=== PATIENT | male | born 1955 | race Caucasian/White ===

== ENCOUNTER 2023-02-01 17:37 | Inpatient (IN) | payer MEDICARE, MEDICAID, SELFPAY ==
--- NOTE | ~2023-02-01 | XR_ITS ---
EXAMINATION: XR ABDOMEN KUB CLINICAL INDICATION: Constipation, rule out obstruction COMPARISON: None available. TECHNIQUE: AP view of the abdomen. FINDINGS: There is no evidence of bowel obstruction. Moderate amount of retained feces seen through the colon consistent with constipation. There is no evidence of free air under the diaphragm. Structures are unremarkable XR/XR KUB IMPRESSION: Constipation
[2023-02-01 18:00] VITALS: BP 133/69; PULSE 70; RESP 18; TEMP 36.3; O2SAT 96
--- NOTE | 2023-02-01 18:32 | PC.ADMIT ---
Patient arrived via stretcher from [facility]. Pt is 67 y.o. male, presented to the [place] ED with increased anxiety and paranoia delusions, symptoms of delusions, hypersexuality, and paranoia. Also thoughts of hurting others who are evil . Pt with Hx of Schizophrenia and on Clozapine. Blood work done here. Awaiting results. During initial assessment at this unit pt alert, oriented x 3. Calm, slurred speech, mood/affect appropriate. Denies SI/HI/AH/VH VS. VS:133/69-70-18, T 97.3, O2sat 96% on RA. Wt 177.4 lb. Skin assessment completed. Left arm edema sec. to post mastectomy. Patient signed consents. Patient was hungry, and is consuming supper at this time. Jim Pat aware of pt's arrrival.
[2023-02-01 18:56] VITALS: BMI 25.5
[2023-02-01 20:30] VITALS: BP 144/88; PULSE 84; RESP 18; TEMP 36.2; O2SAT 96
[2023-02-01] MEDS: cloZAPine 100 MG TABLET PO (21:55)
[2023-02-01] MEDS: traZODone HCL 50 MG TABLET PO ×2 (21:55→23:15)
[2023-02-01] MEDS: Acetaminophen 325 MG TABLET 650 MG PO (21:56)
[2023-02-01 22:30] LABS: Neut%MD 67.1 %; Neutrophils Absolute Auto 4.1 x10*3/uL (2.0-8.3); WBCANC 6.1 X10*3/uL
[2023-02-02] MEDS: hydrOXYzine HCL 25 MG TABLET PO (03:36)
[2023-02-02 06:00] VITALS: BP 120/72; PULSE 73; RESP 16; O2SAT 95
[2023-02-02 08:37] LABS: Alanine Aminotransferase 45 U/L (0-40); Albumin Level 3.7 g/dL (3.5-5.0); Alkaline Phosphatase 95 U/L (39-117); Anion Gap 11 (12-20); Aspartate Amino Transferase 38 U/L (5-37); Bilirubin Direct 0.2 mg/dL (0.0-0.5); Bilirubin Total 0.6 mg/dL (0.0-1.0); Blood Urea Nitrogen 20 mg/dL (9-16); Calcium 9.2 mg/dL (8.4-10.2); Carbon Dioxide 30 mmol/L (22-29); Chloride 106 mmol/L (96-108); Cholesterol 120 mg/dL; Creatinine Clr Calc Pharmacy 89.9; Estimated Glomerular Filt Rate > 60; Glucose Fasting 104 mg/dL (60-99); HDL Cholesterol 53 mg/dL; LDL Cholesterol Calculated 56 mg/dl; Potassium 4.2 mmol/L (3.3-5.1); Sodium 143 mmol/L (135-145); Total Protein 6.9 g/dL (6.5-8.0); Triglycerides 59 mg/dL
[2023-02-02 08:51] LABS: Free T4 (Free Thyroxine) 0.89 ng/dL (0.71-1.85); Thyroid Stimulating Hormone 11.45 uIU/mL (0.32-4.0)
[2023-02-02 09:04] LABS: Folate 10.7 ng/mL (> or = 4.0); Vitamin B12 1699 pg/mL (200-900)
[2023-02-02 09:21] LABS: Estimated Average Glucose 123 mg/dL; Hemoglobin A1c % 5.9 %
--- NOTE | 2023-02-02 12:03 | P.CONHOSP_ITS ---
History of Present Illness Data of Consult Service Date: 02/02/23 Requesting physician: Ashkan Madden Primary Care Provider: Flaca Felton MD HPI Reason for consult: Medical H and P 67-year-old male with history of BPH, hyperlipidemia, type 2 diabetes, hypertension, hypothyroidism, and history of metastatic breast cancer s/p left mastectomy an left-sided lymph node excision treated with chemo and radiation now on anastrozole admitted to Psychiatry consult placed to hospitalist service for medical H and P. He reports he is feeling well and has no complaints. He denies any alcohol use, illicit drug use but does have a history of LSD use and is a former smoker. Review of Systems Review of Systems: General: No fevers, malaise, unintentional weight loss HEENT: No blurred vision, diplopia. No sore throat, nasal congestion, rhinorrhea, sinus pain, ear pain Cardiovascular: No chest pain, palpitations, or leg edema Respiratory: No shortness of breath, wheezing, cough GI: No abdominal pain, nausea, vomiting, diarrhea, constipation, melena, hematochezia : No dysuria, hematuria, increased urinary frequency, decreased urinary output MSK: No myalgia, back pain Neuro: No headaches, weakness, paresthesias Skin: No rashes or lesions [facility] Medical History BPH (benign prostatic hyperplasia) Chronic acquired lymphedema History of breast cancer Hyperlipidemia Hypertension Hypothyroidism Type 2 diabetes mellitus Surgical History S/P left mastectomy Social History Household Members: Caregiver Housing: Apartment Do you presently have visiting nurse or other home services: Yes Patient Tobacco Use Status: Former Tobacco user Smoked in Last 30 Days: No Use of substances other than those prescribed or required for medical reasons: Yes Currently Displaying Signs/Symptoms of Drug Intoxication Withdrawal: No Any prior treatment program specific to substance use: No Have you been hit, kicked, punched, or otherwise hurt by someone within the past year? If so, by whom?: No Do you feel safe in your current relationship?: Yes Is there a partner from a previous relationship who is making you feel unsafe now?: No Are you made to feel afraid or neglected: No Advance Directives: No Advance Directives Information Provided: No Do you have thoughts of harming others: None Do you have a plan to hurt others: No Plan Recently lost weight without trying: Yes How much weight loss: 14-23 pounds Eating poorly because of decreased appetite: No Nutrition screen score: 4 Nutrition Risks: No Nutritional Risk Poor oral hygiene: No service: No Sexual orientation: Straight/Heterosexual Meds Allergies Allergy/AdvReac Type Severity Reaction Status Date / Time Unable to Assess Allergy Verified 02/01/23 17:51 Active Medications: Current Medications Acetaminophen (Acetaminophen 325 Mg Tablet) 650 mg PO Q6H PRN PRN Reason: Headache/Pain Mild Scale (1-3) Last Admin: 02/01/23 21:56 Dose: 650 mg Al Hydroxide/Mg Hydroxide (Magnesium Hydrox/Alum Hydrox 30 Ml Oral.Susp) 30 ml PO Q6H PRN PRN Reason: Heartburn/Nausea Clozapine 200 mg/ Clozapine 50 (mg) 250 mg PO BEDTIME [facility] Hydroxyzine HCl (Hydroxyzine Hcl 25 Mg Tablet) 25 mg PO Q6H PRN PRN Reason: Anxiety Last Admin: 02/02/23 03:36 Dose: 25 mg Magnesium Hydroxide (Milk Of Magnesia 30 Ml Oral.Susp) 30 ml PO DAILY PRN PRN Reason: Constipation Trazodone HCl (Trazodone Hcl 50 Mg Tablet) 50 mg PO BEDTIME MRX1 PRN PRN Reason: Insomnia Last Admin: 02/01/23 23:15 Dose: 50 mg Home Medications Medication Instructions Recorded Confirmed Last Taken Type alfuzosin 10 mg tablet,extended 10 mg PO DAILY 02/02/23 02/02/23 Unknown History release 24 hr anastrozole 1 mg tablet 1 mg PO 02/02/23 Unknown History atorvastatin 80 mg tablet 80 mg PO 02/02/23 Unknown History benztropine 0.5 mg tablet 0.5 mg PO BEDTIME 02/02/23 02/02/23 Unknown History cyanocobalamin (vitamin B-12) 1,000 mcg PO DAILY 02/02/23 02/02/23 Unknown History 1,000 mcg tablet,extended release (Vitamin B-12 ER) docusate sodium 100 mg capsule 200 mg PO BID PRN Constipation 02/02/23 02/02/23 Unknown History famotidine 20 mg tablet 20 mg PO 02/02/23 Unknown History finasteride 5 mg tablet 5 mg PO 02/02/23 Unknown History furosemide 20 mg tablet 20 mg PO 02/02/23 Unknown History levothyroxine 100 mcg tablet 100 mcg PO 02/02/23 Unknown History metformin 500 mg tablet,extended 500 mg PO QPM 02/02/23 02/02/23 Unknown History release 24 hr metoprolol succinate 25 mg 25 mg PO DAILY blood pressure 02/02/23 02/02/23 Unknown History tablet,extended release 24 hr ropinirole 0.5 mg tablet 0.5 mg PO BID 02/02/23 02/02/23 Unknown History sennosides 8.6 mg-docusate sodium 2 tab PO BID 02/02/23 02/02/23 Unknown History 50 mg tablet (Senna Plus) Physical Exam Vital Signs and Narrative: Vital Signs: Last Vital Signs Temp 97.2 F 02/01/23 20:30 Pulse 73 02/02/23 06:00 Resp 16 02/02/23 06:00 BP 120/72 02/02/23 06:00 Pulse Ox 95 02/02/23 06:00 O2 Del Method Room Air 02/02/23 06:00 BMI result Body Mass Index 25.5 Constitutional - Awake and Alert, No apparent distress Eyes - PERRLA, EOMI Cardiovascular - S1S2, RRR, No edema Respiratory - Normal lung expansion, Normal respiratory effort, No respiratory distress, CTA bilaterally Gastrointestinal - NT / ND; +BS; No rebound or guarding Extremities - no calf tenderness bilaterally, no swelling Musculoskeletal - Normal inspection, normal ROM Skin - Warm/Dry Neurological - Alert & oriented x3, CN II-XII in tact, 5/5 strength BUE and BLE Psychological - Appropriate affect Results Labs 02/02/23 08:03 Labs: Laboratory Results - last 24 hr 02/01/23 02/02/23 02/02/23 22:18 08:03 08:03 Absolute Neuts (auto) 4.1 Anion Gap 11 L Estim Creat Clear Calc 89.9 Estimated GFR > 60 Fasting Glucose 104 H Estimat Average Glucose 123 Hemoglobin A1c % 5.9 Calcium 9.2 Total Bilirubin 0.6 Direct Bilirubin 0.2 AST 38 H ALT 45 H Alkaline Phosphatase 95 Total Protein 6.9 Albumin 3.7 Triglycerides 59 Cholesterol 120 LDL Cholesterol, Calc 56 HDL Cholesterol 53 Vitamin B12 Folate TSH 11.45 H Free T4 0.89 02/02/23 08:03 Absolute Neuts (auto) Anion Gap Estim Creat Clear Calc Estimated GFR Fasting Glucose Estimat Average Glucose Hemoglobin A1c % Calcium Total Bilirubin Direct Bilirubin AST ALT Alkaline Phosphatase Total Protein Albumin Triglycerides Cholesterol LDL Cholesterol, Calc HDL Cholesterol Vitamin B12 1699 H Folate 10.7 TSH Free T4 Assessment and Plan (1) Routine medical exam: Status: Acute Plan 67-year-old male with history of BPH, hyperlipidemia, type 2 diabetes, hypertension, hypothyroidism, and history of metastatic breast cancer s/p left mastectomy an left-sided lymph node excision treated with chemo and radiation now on anastrozole admitted to Psychiatry consult placed to hospitalist service for medical H and P. #Mood disorder/psychosis -plan per psychiatry #Type 2 diabetes -poc glucose -diabetic diet -Humalog on sliding scale p.r.n. hyperglycemia -continue metformin # hyperlipidemia -continue statin # hypertension -blood pressure reasonably controlled -continue home meds # BPH -continue home meds # hypothyroidism -continue Synthroid # chronic lymphedema s/p left-sided lymph node dissection with history of breast cancer -continue Lasix Thank you for allowing me to participate in this consult. Signing off at this time. Please do not hesitate to call for further questions. Time Spent With Patient Time: Total time managing care of this patient today ____ minutes.
--- NOTE | 2023-02-02 16:23 | HO.PSYADMNOT ---
HPI Date of Service: 02/02/23 Chief Complaint: F20.9 Sources of Information: patient interviewed, chart reviewed and crisis/core team assessment reviewed HPI Subjective Notes: [place] Warning (given and shows understanding) and Conditional Voluntary Narrative: Mr. Sales is a 67 year-old male with hx of schizoaffective disorder who self presented to [facility] ED in [place] after being discharged from respite reporting that spirits were out to get him. In the ED, pt described as yelling at times sex, sex, sex. He denied SI but reported HI towards evil forces. Utox is negative. 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 Rahel Mejia On the unit, pt presents as pleasant. He reports he came to the hospital because Satan's children are trying to kill me. Pt explains that he can see them, but not hear them. He reports he was seeing them while he was at ED. He denies suicidal ideation. He reports at times poor sleep due to nightmares. He reports homicidal ideation towards evil forces but explains this is a mental process not physically assaulting anyone. Pt reports he lives alone and reports that he takes his medications as prescribed. He reports remote suicidal attempt when he was in high school when he thought devil was trying to kill him and he didn't want to feel the pain. He denies any thoughts like this now or recently. Pt was observed praying prior to eating his food and before every bite. Past Psychiatric History: Inpatient: multiple in the past, no details provided OP: Dr. Rahel Mejia Past trials: clozaril, lithium (per pt not as effective as depakote), depakote, haldol Medical Evaluation Reviewed: Yes [facility] Medical History BPH (benign prostatic hyperplasia) Chronic acquired lymphedema History of breast cancer Hyperlipidemia Hypertension Hypothyroidism Type 2 diabetes mellitus Surgical History S/P left mastectomy Family History: unknown, pt denies Social History: Pt lives alone. Not , no children. He reports he has 3 older brothers who are close to him. Pt reports Riky is his HCP. He reports he graduated HS. Had various jobs- carpentry, cleaning Substance History: denies Trauma History: denies Diagnostics Vital Signs (24Hr): Vital Signs - 24 hr 02/01/23 18:00 02/01/23 20:30 02/02/23 06:00 Temperature 97.3 F 97.2 F Pulse Rate 70 84 73 Respiratory Rate 18 18 16 Blood Pressure 133/69 144/88 H 120/72 Pulse Oximetry 96 96 95 Oxygen Delivery Method Room Air Room Air Room Air BMI result Body Mass Index 25.5 Labs 02/02/23 08:03 Labs: Laboratory Results - last 48 hr 02/01/23 02/02/23 02/02/23 22:18 08:03 08:03 Absolute Neuts (auto) 4.1 Sodium 143 Potassium 4.2 Chloride 106 Carbon Dioxide 30 H Anion Gap 11 L BUN 20 H Creatinine 0.80 Estim Creat Clear Calc 89.9 Estimated GFR > 60 Fasting Glucose 104 H Estimat Average Glucose 123 Hemoglobin A1c % 5.9 Calcium 9.2 Total Bilirubin 0.6 Direct Bilirubin 0.2 AST 38 H ALT 45 H Alkaline Phosphatase 95 Total Protein 6.9 Albumin 3.7 Triglycerides 59 Cholesterol 120 LDL Cholesterol, Calc 56 HDL Cholesterol 53 Vitamin B12 Folate TSH 11.45 H Free T4 0.89 02/02/23 08:03 Absolute Neuts (auto) Sodium Potassium Chloride Carbon Dioxide Anion Gap BUN Creatinine Estim Creat Clear Calc Estimated GFR Fasting Glucose Estimat Average Glucose Hemoglobin A1c % Calcium Total Bilirubin Direct Bilirubin AST ALT Alkaline Phosphatase Total Protein Albumin Triglycerides Cholesterol LDL Cholesterol, Calc HDL Cholesterol Vitamin B12 1699 H Folate 10.7 TSH Free T4 Meds/Allergies Meds Home Medications Medication Instructions Recorded Confirmed Type alfuzosin 10 mg tablet,extended 10 mg PO DAILY 02/02/23 02/02/23 History release 24 hr anastrozole 1 mg tablet 1 mg PO 02/02/23 History atorvastatin 80 mg tablet 80 mg PO 02/02/23 History benztropine 0.5 mg tablet 0.5 mg PO BEDTIME 02/02/23 02/02/23 History cyanocobalamin (vitamin B-12) 1,000 mcg PO DAILY 02/02/23 02/02/23 History 1,000 mcg tablet,extended release (Vitamin B-12 ER) docusate sodium 100 mg capsule 200 mg PO BID PRN Constipation 02/02/23 02/02/23 History famotidine 20 mg tablet 20 mg PO 02/02/23 History finasteride 5 mg tablet 5 mg PO 02/02/23 History furosemide 20 mg tablet 20 mg PO 02/02/23 History levothyroxine 100 mcg tablet 100 mcg PO 02/02/23 History metformin 500 mg tablet,extended 500 mg PO QPM 02/02/23 02/02/23 History release 24 hr metoprolol succinate 25 mg 25 mg PO DAILY blood pressure 02/02/23 02/02/23 History tablet,extended release 24 hr ropinirole 0.5 mg tablet 0.5 mg PO BID 02/02/23 02/02/23 History sennosides 8.6 mg-docusate sodium 2 tab PO BID 02/02/23 02/02/23 History 50 mg tablet (Senna Plus) Allergies Allergies Allergy/AdvReac Type Severity Reaction Status Date / Time Unable to Assess Allergy Verified 02/01/23 17:51 Mental Status Exam Mental Status Exam Narrative: Appearance: wearing casual clothing, slightly disheveled, in NAD Behavior: cooperative Psychomotor: resting bilat tremors Speech: mostly clear, regular rate/rhythm, spontaneous TP: mostly linear, no overt derailment TC: dealing with Satan's children not feeling afraid Mood: good Affect: constricted, but does brighten up at times. SI: denies HI: towards evil forces but denies any plan or intent to harm any person VH/AH: seeing devil's children Delusions: persecutory delusions of satans children trying to kill him Insight/judgment: fair x 2 Memory/cog: alert, oriented x 3 Assessment & Plan Assessment & Plan (1) Schizoaffective disorder, bipolar type: Status: Acute Code(s): F25.0 - Schizoaffective disorder, bipolar type Plan Mr. Bassett is a 67 year-old male with hx of Schizoaffective disorder who self presented to [facility] ED reporting spirits were out to get me. He denied SI. No plan or intent to harm any person but mentally fighting Satan. Pt is on clozaril. He reports taking medication as prescribed but unclear if this is the case. He did receive clozaril 150mg po qhs while in the ED ubt his pharmacy reports he should be on 250mg po qhs. Pt agrees to split the dose. Per nursing, pt was yelling at night and during the day sex, sex, sex. We discussed risks, benefits and alternative treatment options. PLAN 1. Admit to S1. CV, 15 minutes checks for safety 2. Restart clozaril 50mg po daily and 200mg po qhs. continue depakote, but note elevation in LFTs. Monitor ammonia levels. 3. Obtain collateral information 4. Aftercare planning. Patient educated on: diagnosis and medication risk/benefits Reason for continued inpatient stay Substantial Risk for: inability to function Statement Statement: I have reviewed the history and physical and performed a pertinent examination on my patient. No changes have occurred unless specified. If the History and Physical was not performed prior to admission, the Hospitalist's service will be consulted for completing the admission physical. Time Spent With Patient Time: Total time managing care of this patient today ____ minutes.
[2023-02-02 16:36] LABS: Glucose, Whole Blood 127 mg/dL (60-115)
[2023-02-02] MEDS: Levothyroxine Sodium 100 MCG TABLET PO (17:18)
[2023-02-02] MEDS: Metoprolol Succinate ER 25 MG TAB.ER.24H PO (17:18)
[2023-02-02] MEDS: Furosemide 20 MG TABLET PO (17:27)
[2023-02-02 18:00] VITALS: BP 130/82; PULSE 72; RESP 18; TEMP 35.8; O2SAT 96
[2023-02-02 20:01] LABS: Glucose, Whole Blood 139 mg/dL (60-115)
[2023-02-02] MEDS: cloZAPine 100 MG TABLET 200 MG PO (21:29)
[2023-02-02] MEDS: metFORMIN HCl ER 500 MG TAB.ER.24H PO (21:29)
[2023-02-02] MEDS: Sennosides/Docusate Sodium TABLET 2 TAB PO (21:30)
[2023-02-02] MEDS: traZODone HCL 100 MG TABLET PO (23:11)
[2023-02-03] MEDS: Levothyroxine Sodium 100 MCG TABLET PO (06:34)
[2023-02-03 07:33] LABS: Glucose, Whole Blood 108 mg/dL (60-115)
[2023-02-03 08:00] VITALS: BP 119/73; PULSE 80; RESP 18; TEMP 36.2; O2SAT 98
[2023-02-03] MEDS: cloZAPine 25 MG TABLET 50 MG PO (08:08)
[2023-02-03] MEDS: Tamsulosin HCL 0.4 MG CAPSULE PO (08:09)
[2023-02-03] MEDS: Cyanocobalamin (Vitamin B-12) 1,000 MCG TABLET 1000 MCG PO (08:09)
[2023-02-03] MEDS: Furosemide 20 MG TABLET PO (08:09)
[2023-02-03] MEDS: Finasteride 5 MG TABLET PO (08:09)
[2023-02-03] MEDS: Metoprolol Succinate ER 25 MG TAB.ER.24H PO (08:09)
[2023-02-03] MEDS: Sennosides/Docusate Sodium TABLET 2 TAB PO ×2 (08:09→20:29)
[2023-02-03] MEDS: LORazepam 1 MG TABLET PO (10:27)
[2023-02-03] MEDS: OLANZapine 10 MG TABLET PO (10:27)
[2023-02-03 12:02] LABS: Glucose, Whole Blood 93 mg/dL (60-115)
[2023-02-03] MEDS: Divalproex Sodium 500 MG TABLET.DR PO ×2 (14:01→20:29)
[2023-02-03 19:45] VITALS: BP 122/66; PULSE 78; RESP 18; TEMP 36.6; O2SAT 97
--- NOTE | 2023-02-03 19:47 | HO.PSYCHPN ---
Subjective Subjective Date of Service: 02/03/23 Reason For Visit: F20.9 Subjective Notes: Conditional Voluntary Interim History: Pt posturing towards peer and RN. He told this automotive service writer he thought they were Satan's children. Pt reflects that maybe it was devil making him think that they were evil when they were not. Pt reports he sent spell to RN which he states now regrets as he realizes she may not be Satan's child. He then asks this automotive service writer if he should be making peace signs to others, pt encourage not to be in other people's spaces. Left VM to outpatient psychiatrist, awaiting call back. Review of Systems Review of Systems Pt denies pain, including chest pain. No changes in vision. Noted resting bilat tremor He denies constipation, reports last BM yesterday. He denies abdominal pain. He denies headaches. Mental Status Exam Mental Status Exam Narrative: Appearance: wearing casual clothing, slightly disheveled, in NAD Behavior: cooperative Psychomotor: resting bilat tremors Speech: mostly clear, regular rate/rhythm, spontaneous TP: mostly linear, no overt derailment TC: dealing with Satan's children not feeling afraid Mood: good Affect: constricted, but does brighten up at times. SI: denies HI: towards evil forces but denies any plan or intent to harm any person VH/AH: seeing devil's children Delusions: persecutory delusions of satans children trying to kill him Insight/judgment: fair x 2 Memory/cog: alert, oriented x 3 Diagnostics Vital Signs (24Hr): Vital Signs - 24 hr 02/03/23 08:00 Temperature 97.2 F Pulse Rate 80 Respiratory Rate 18 Blood Pressure 119/73 Pulse Oximetry 98 Oxygen Delivery Method Room Air BMI result Body Mass Index 25.5 Labs 02/02/23 08:03 Labs: Laboratory Results - last 48 hr 02/01/23 02/02/23 02/02/23 22:18 08:03 08:03 Absolute Neuts (auto) 4.1 Sodium 143 Potassium 4.2 Chloride 106 Carbon Dioxide 30 H Anion Gap 11 L BUN 20 H Creatinine 0.80 Estim Creat Clear Calc 89.9 Estimated GFR > 60 POC Glucose Fasting Glucose 104 H Estimat Average Glucose 123 Hemoglobin A1c % 5.9 Calcium 9.2 Total Bilirubin 0.6 Direct Bilirubin 0.2 AST 38 H ALT 45 H Alkaline Phosphatase 95 Total Protein 6.9 Albumin 3.7 Triglycerides 59 Cholesterol 120 LDL Cholesterol, Calc 56 HDL Cholesterol 53 Vitamin B12 Folate TSH 11.45 H Free T4 0.89 02/02/23 02/02/23 02/02/23 08:03 16:31 19:47 Absolute Neuts (auto) Sodium Potassium Chloride Carbon Dioxide Anion Gap BUN Creatinine Estim Creat Clear Calc Estimated GFR POC Glucose 127 H 139 H Fasting Glucose Estimat Average Glucose Hemoglobin A1c % Calcium Total Bilirubin Direct Bilirubin AST ALT Alkaline Phosphatase Total Protein Albumin Triglycerides Cholesterol LDL Cholesterol, Calc HDL Cholesterol Vitamin B12 1699 H Folate 10.7 TSH Free T4 02/03/23 02/03/23 07:17 11:58 Absolute Neuts (auto) Sodium Potassium Chloride Carbon Dioxide Anion Gap BUN Creatinine Estim Creat Clear Calc Estimated GFR POC Glucose 108 93 Fasting Glucose Estimat Average Glucose Hemoglobin A1c % Calcium Total Bilirubin Direct Bilirubin AST ALT Alkaline Phosphatase Total Protein Albumin Triglycerides Cholesterol LDL Cholesterol, Calc HDL Cholesterol Vitamin B12 Folate TSH Free T4 Medications Medications Current Medications Acetaminophen (Acetaminophen 325 Mg Tablet) 650 mg PO Q6H PRN PRN Reason: Headache/Pain Mild Scale (1-3) Last Admin: 02/01/23 21:56 Dose: 650 mg Al Hydroxide/Mg Hydroxide (Magnesium Hydrox/Alum Hydrox 30 Ml Oral.Susp) 30 ml PO Q6H PRN PRN Reason: Heartburn/Nausea Clozapine (Clozapine 100 Mg Tablet) 200 mg PO BEDTIME [facility] Last Admin: 02/02/23 21:29 Dose: 200 mg Clozapine (Clozapine 25 Mg Tablet) 50 mg PO DAILY [facility] Last Admin: 02/03/23 08:08 Dose: 50 mg Cyanocobalamin (Cyanocobalamin (Vitamin B-12) 1,000 Mcg Tablet) 1,000 mcg PO DAILY [facility] Last Admin: 02/03/23 08:09 Dose: 1,000 mcg Divalproex Sodium (Divalproex Sodium 500 Mg Tablet.Dr) 500 mg PO BID [facility] Last Admin: 02/03/23 14:01 Dose: 500 mg Finasteride (Finasteride 5 Mg Tablet) 5 mg PO DAILY [facility] Last Admin: 02/03/23 08:09 Dose: 5 mg Furosemide (Furosemide 20 Mg Tablet) 20 mg PO DAILY [facility]; Protocol Last Admin: 02/03/23 08:09 Dose: 20 mg Haloperidol (Haloperidol 5 Mg Tablet) 5 mg PO Q6H PRN PRN Reason: agitation Hydroxyzine HCl (Hydroxyzine Hcl 25 Mg Tablet) 25 mg PO Q6H PRN PRN Reason: Anxiety Last Admin: 02/02/23 03:36 Dose: 25 mg Levothyroxine Sodium (Levothyroxine Sodium 100 Mcg Tablet) 100 mcg PO DAILY@0700 [facility] Last Admin: 02/03/23 06:34 Dose: 100 mcg Lorazepam (Lorazepam 1 Mg Tablet) 1 mg PO Q6H PRN PRN Reason: agitation Magnesium Hydroxide (Milk Of Magnesia 30 Ml Oral.Susp) 30 ml PO DAILY PRN PRN Reason: Constipation Metformin HCl (Metformin Hcl Er 500 Mg Tab.Er.24h) 500 mg PO BEDTIME [facility] Last Admin: 02/02/23 21:29 Dose: 500 mg Metoprolol Succinate (Metoprolol Succinate Er 25 Mg Tab.Er.24h) 25 mg PO DAILY [facility]; Protocol Last Admin: 02/03/23 08:09 Dose: 25 mg Senna/Docusate Sodium (Sennosides/Docusate Sodium Tablet) 2 tab PO BID [facility] Last Admin: 02/03/23 08:09 Dose: 2 tab Tamsulosin HCl (Tamsulosin Hcl 0.4 Mg Capsule) 0.4 mg PO DAILY [facility] Last Admin: 02/03/23 08:09 Dose: 0.4 mg Trazodone HCl (Trazodone Hcl 100 Mg Tablet) 100 mg PO BEDTIME PRN PRN Reason: Insomnia Last Admin: 02/02/23 23:11 Dose: 100 mg Allergies Allergies Allergy/AdvReac Type Severity Reaction Status Date / Time Unable to Assess Allergy Verified 02/01/23 17:51 Assessment & Plan Assessment & Plan (1) Schizoaffective disorder, bipolar type: Status: Acute Code(s): F25.0 - Schizoaffective disorder, bipolar type Plan Mr. Bassett is a 67 year-old male with hx of Schizoaffective disorder who self presented to [facility] ED reporting spirits were out to get me. He denied SI. No plan or intent to harm any person but mentally fighting Satan. Pt is on clozaril. He reports taking medication as prescribed but unclear if this is the case. He did receive clozaril 150mg po qhs while in the ED ubt his pharmacy reports he should be on 250mg po qhs. Pt agrees to split the dose. Per nursing, pt was yelling at night and during the day sex, sex, sex. We discussed risks, benefits and alternative treatment options. PLAN 1. Admit to S1. CV, 15 minutes checks for safety 2. Restart clozaril 50mg po daily and 200mg po qhs. continue depakote, but note elevation in LFTs. Monitor ammonia levels. 3. Obtain collateral information 4. Aftercare planning. 02/03 add depakote 500mg po BID (monitor LFT's, ammonia). continue clozaril, continue to titrate. haldol and ativan prn for agitation. it appears he has been on haldol and recently switched to clozaril due to dyskinesia. Reason for continued inpatient stay Substantial Risk for: harm to others and inability to function Time Spent With Patient Time: Total time managing care of this patient today ____ minutes.
[2023-02-03] MEDS: cloZAPine 100 MG TABLET 200 MG PO (20:29)
[2023-02-03] MEDS: metFORMIN HCl ER 500 MG TAB.ER.24H PO (20:29)
[2023-02-04] MEDS: Levothyroxine Sodium 100 MCG TABLET PO (06:27)
[2023-02-04 07:50] LABS: Glucose, Whole Blood 92 mg/dL (60-115)
[2023-02-04 08:00] VITALS: BP 120/70; PULSE 80; RESP 18; TEMP 36.4; O2SAT 97
[2023-02-04] MEDS: Finasteride 5 MG TABLET PO (08:22)
[2023-02-04] MEDS: Sennosides/Docusate Sodium TABLET 2 TAB PO ×2 (08:22→19:55)
[2023-02-04] MEDS: Furosemide 20 MG TABLET PO (08:23)
[2023-02-04] MEDS: Divalproex Sodium 500 MG TABLET.DR PO ×2 (08:23→19:55)
[2023-02-04] MEDS: Metoprolol Succinate ER 25 MG TAB.ER.24H PO (08:23)
[2023-02-04] MEDS: cloZAPine 25 MG TABLET 50 MG PO (08:23)
[2023-02-04] MEDS: Cyanocobalamin (Vitamin B-12) 1,000 MCG TABLET 1000 MCG PO (08:23)
[2023-02-04] MEDS: Tamsulosin HCL 0.4 MG CAPSULE PO (08:23)
[2023-02-04 12:35] VITALS: BMI 26.1
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
[2023-02-04 18:00] VITALS: BP 103/55; PULSE 82; RESP 18; TEMP 36.1; O2SAT 97
[2023-02-04] MEDS: metFORMIN HCl ER 500 MG TAB.ER.24H PO (19:54)
[2023-02-04] MEDS: cloZAPine 100 MG TABLET 200 MG PO (19:54)
[2023-02-04] MEDS: hydrOXYzine HCL 25 MG TABLET PO (19:54)
[2023-02-04] MEDS: traZODone HCL 100 MG TABLET PO (19:55)
[2023-02-05] MEDS: Levothyroxine Sodium 100 MCG TABLET PO (06:31)
[2023-02-05 07:55] VITALS: BP 122/68; PULSE 86; RESP 18; TEMP 36.7; O2SAT 95
[2023-02-05 08:04] LABS: Glucose, Whole Blood 114 mg/dL (60-115)
[2023-02-05] MEDS: Finasteride 5 MG TABLET PO (08:05)
[2023-02-05] MEDS: Divalproex Sodium 500 MG TABLET.DR PO ×2 (08:05→20:25)
[2023-02-05] MEDS: Sennosides/Docusate Sodium TABLET 2 TAB PO ×2 (08:06→20:24)
[2023-02-05] MEDS: cloZAPine 25 MG TABLET 50 MG PO (08:06)
[2023-02-05] MEDS: Metoprolol Succinate ER 25 MG TAB.ER.24H PO (08:06)
[2023-02-05] MEDS: Cyanocobalamin (Vitamin B-12) 500 MCG TABLET PO (08:06)
[2023-02-05] MEDS: Tamsulosin HCL 0.4 MG CAPSULE PO (08:06)
[2023-02-05] MEDS: Furosemide 20 MG TABLET PO (08:06)
--- NOTE | 2023-02-05 09:50 | HO.PSYCHPN ---
Subjective Subjective Date of Service: 02/05/23 Reason For Visit: F20.9 Subjective Notes: Conditional Voluntary Interim History: Pt slept through the night. Pt continues to report that he believes some peers on the unit are evil. He denies SI/HI. He continues to report that he has power to put spells on people. He continues on 1 to 1 due to intrusive behaviors but no aggression. He is taking medications as prescribed. Review of Systems Review of Systems Pt denies pain, including chest pain. No changes in vision. Noted resting bilat tremor He denies constipation, reports last BM yesterday. He denies abdominal pain. He denies headaches. Diagnostics Vital Signs (24Hr): Vital Signs - 24 hr 02/04/23 18:00 02/05/23 07:55 Temperature 97.0 F 98.0 F Pulse Rate 82 86 Respiratory Rate 18 18 Blood Pressure 103/55 L 122/68 Pulse Oximetry 97 95 Oxygen Delivery Method Room Air Room Air BMI result Body Mass Index 26.1 Labs 02/02/23 08:03 Labs: Laboratory Results - last 48 hr 02/03/23 02/04/23 02/05/23 11:58 07:40 07:45 POC Glucose 93 92 114 Medications Medications Current Medications Acetaminophen (Acetaminophen 325 Mg Tablet) 650 mg PO Q6H PRN PRN Reason: Headache/Pain Mild Scale (1-3) Last Admin: 02/01/23 21:56 Dose: 650 mg Al Hydroxide/Mg Hydroxide (Magnesium Hydrox/Alum Hydrox 30 Ml Oral.Susp) 30 ml PO Q6H PRN PRN Reason: Heartburn/Nausea Clozapine (Clozapine 100 Mg Tablet) 200 mg PO BEDTIME [facility] Last Admin: 02/04/23 19:54 Dose: 200 mg Clozapine (Clozapine 100 Mg Tablet) 100 mg PO DAILY [facility] Cyanocobalamin (Cyanocobalamin (Vitamin B-12) 500 Mcg Tablet) 500 mcg PO DAILY [facility] Last Admin: 02/05/23 08:06 Dose: 500 mcg Divalproex Sodium (Divalproex Sodium 500 Mg Tablet.) 500 mg PO BID [facility] Last Admin: 02/05/23 08:05 Dose: 500 mg Finasteride (Finasteride 5 Mg Tablet) 5 mg PO DAILY [facility] Last Admin: 02/05/23 08:05 Dose: 5 mg Furosemide (Furosemide 20 Mg Tablet) 20 mg PO DAILY [facility]; Protocol Last Admin: 02/05/23 08:06 Dose: 20 mg Haloperidol (Haloperidol 5 Mg Tablet) 5 mg PO Q6H PRN PRN Reason: agitation Hydroxyzine HCl (Hydroxyzine Hcl 25 Mg Tablet) 25 mg PO Q6H PRN PRN Reason: Anxiety Last Admin: 02/04/23 19:54 Dose: 25 mg Levothyroxine Sodium (Levothyroxine Sodium 100 Mcg Tablet) 100 mcg PO DAILY@0700 [facility] Last Admin: 02/05/23 06:31 Dose: 100 mcg Lorazepam (Lorazepam 1 Mg Tablet) 1 mg PO Q6H PRN PRN Reason: agitation Magnesium Hydroxide (Milk Of Magnesia 30 Ml Oral.Susp) 30 ml PO DAILY PRN PRN Reason: Constipation Metformin HCl (Metformin Hcl Er 500 Mg Tab.Er.24h) 500 mg PO BEDTIME [facility] Last Admin: 02/04/23 19:54 Dose: 500 mg Metoprolol Succinate (Metoprolol Succinate Er 25 Mg Tab.Er.24h) 25 mg PO DAILY [facility]; Protocol Last Admin: 02/05/23 08:06 Dose: 25 mg Senna/Docusate Sodium (Sennosides/Docusate Sodium Tablet) 2 tab PO BID [facility] Last Admin: 02/05/23 08:06 Dose: 2 tab Tamsulosin HCl (Tamsulosin Hcl 0.4 Mg Capsule) 0.4 mg PO DAILY [facility] Last Admin: 02/05/23 08:06 Dose: 0.4 mg Trazodone HCl (Trazodone Hcl 100 Mg Tablet) 100 mg PO BEDTIME PRN PRN Reason: Insomnia Last Admin: 02/04/23 19:55 Dose: 100 mg Allergies Allergies Allergy/AdvReac Type Severity Reaction Status Date / Time Unable to Assess Allergy Verified 02/01/23 17:51 Assessment & Plan Assessment & Plan (1) Schizoaffective disorder, bipolar type: Status: Acute Code(s): F25.0 - Schizoaffective disorder, bipolar type Plan Mr. Bassett is a 67 year-old male with hx of Schizoaffective disorder who self presented to [facility] ED reporting spirits were out to get me. He denied SI. No plan or intent to harm any person but mentally fighting Satan. Pt is on clozaril. He reports taking medication as prescribed but unclear if this is the case. He did receive clozaril 150mg po qhs while in the ED ubt his pharmacy reports he should be on 250mg po qhs. Pt agrees to split the dose. Per nursing, pt was yelling at night and during the day sex, sex, sex. We discussed risks, benefits and alternative treatment options. PLAN 1. Admit to S1. CV, 15 minutes checks for safety 2. Restart clozaril 50mg po daily and 200mg po qhs. continue depakote, but note elevation in LFTs. Monitor ammonia levels. 3. Obtain collateral information 4. Aftercare planning. 02/03 add depakote 500mg po BID (monitor LFT's, ammonia). continue clozaril, continue to titrate. haldol and ativan prn for agitation. it appears he has been on haldol and recently switched to clozaril due to dyskinesia. 02/04 increase clozaril to 100mg po daily and 200mg po qhs. continue depakote. 02/05 continue tx. Reason for continued inpatient stay Substantial Risk for: inability to function Time Spent With Patient Time: Total time managing care of this patient today ____ minutes.
--- NOTE | 2023-02-05 16:23 | PC.NURSE ---
pt and sitter were sitting outside in the porch and talking about how much the vegetable were growing, pt stated to sitter, lets put that cucumber between your legs sitter tried to redirect patient with no effect. pt stated I want to put the cucumber in your ass. gag writer overhead pt saying that to sitter and switched places immediately and informed pt that this was not appropriate, recommended for a male to sit with pt for the rest of the evening
[2023-02-05 18:00] VITALS: BP 160/88; PULSE 91; RESP 18; TEMP 36.5; O2SAT 97
[2023-02-05] MEDS: hydrOXYzine HCL 25 MG TABLET PO (20:24)
[2023-02-05] MEDS: metFORMIN HCl ER 500 MG TAB.ER.24H PO (20:25)
[2023-02-05] MEDS: cloZAPine 100 MG TABLET 200 MG PO (20:25)
[2023-02-05] MEDS: traZODone HCL 100 MG TABLET PO (20:25)
[2023-02-06] MEDS: traZODone HCL 100 MG TABLET PO (00:47)
[2023-02-06] MEDS: HaloperidoL 5 MG TABLET PO (00:47)
[2023-02-06 06:00] VITALS: BP 132/77; PULSE 85; RESP 16; TEMP 36.2; O2SAT 96
[2023-02-06] MEDS: Levothyroxine Sodium 100 MCG TABLET PO (06:14)
--- NOTE | 2023-02-06 07:41 | HO.PSYCHPN ---
Subjective Subjective Date of Service: 02/06/23 Reason For Visit: F20.9 Interim History: The nursing staff reported that yesterday in the morning he was inappropriate sexually with female staff and he was redirected, since then we change the sitter to male. In the afternoon he was seen watching TV but he has verbal outburst. He had been compliant with medications and he is trazodone at and Atarax last night. Today in the morning he was having verbal outburst at times. On interview, he denies new symptoms. Mental Status Exam Mental Status Exam Patient Appearance: Appropriate Patient Orientation: Person and Situation Level of Consciousness: Awake and Inappropriate Patient Behavior: Guarded and Passive Mood Description: Anxious and Apprehensive Affect Description: Labile Patient Cognition Impaired: Yes Ability to Follow Directions: Fair Speech Pattern: Impoverished and Spontaneous Speech Hallucinations: None Delusions: Paranoid Ideation Thought Process: Racing and Illogical Thought Content: positive for [place] and positive for Poverty of Content Judgement: Poor Diagnostics Vital Signs (24Hr): Vital Signs - 24 hr 02/05/23 07:55 02/05/23 18:00 Temperature 98.0 F 97.7 F Pulse Rate 86 91 Respiratory Rate 18 18 Blood Pressure 122/68 160/88 H Pulse Oximetry 95 97 Oxygen Delivery Method Room Air Room Air BMI result Body Mass Index 26.1 Labs 02/02/23 08:03 Labs: Laboratory Results - last 48 hr 02/04/23 02/05/23 07:40 07:45 POC Glucose 92 114 Imaging Radiology Impressions: ITS Impressions KUB X-Ray 02/05/23 10:17 IMPRESSION: Constipation Medications Medications Current Medications Acetaminophen (Acetaminophen 325 Mg Tablet) 650 mg PO Q6H PRN PRN Reason: Headache/Pain Mild Scale (1-3) Last Admin: 02/01/23 21:56 Dose: 650 mg Al Hydroxide/Mg Hydroxide (Magnesium Hydrox/Alum Hydrox 30 Ml Oral.Susp) 30 ml PO Q6H PRN PRN Reason: Heartburn/Nausea Clozapine (Clozapine 100 Mg Tablet) 200 mg PO BEDTIME [facility] Last Admin: 02/05/23 20:25 Dose: 200 mg Clozapine (Clozapine 100 Mg Tablet) 100 mg PO DAILY [facility] Cyanocobalamin (Cyanocobalamin (Vitamin B-12) 500 Mcg Tablet) 500 mcg PO DAILY [facility] Last Admin: 02/05/23 08:06 Dose: 500 mcg Divalproex Sodium (Divalproex Sodium 500 Mg Tablet.Dr) 500 mg PO BID [facility] Last Admin: 02/05/23 20:25 Dose: 500 mg Finasteride (Finasteride 5 Mg Tablet) 5 mg PO DAILY [facility] Last Admin: 02/05/23 08:05 Dose: 5 mg Furosemide (Furosemide 20 Mg Tablet) 20 mg PO DAILY [facility]; Protocol Last Admin: 02/05/23 08:06 Dose: 20 mg Haloperidol (Haloperidol 5 Mg Tablet) 5 mg PO Q6H PRN PRN Reason: agitation Last Admin: 02/06/23 00:47 Dose: 5 mg Hydroxyzine HCl (Hydroxyzine Hcl 25 Mg Tablet) 25 mg PO Q6H PRN PRN Reason: Anxiety Last Admin: 02/05/23 20:24 Dose: 25 mg Levothyroxine Sodium (Levothyroxine Sodium 100 Mcg Tablet) 100 mcg PO DAILY@0700 [facility] Last Admin: 02/06/23 06:14 Dose: 100 mcg Lorazepam (Lorazepam 1 Mg Tablet) 1 mg PO Q6H PRN PRN Reason: agitation Magnesium Hydroxide (Milk Of Magnesia 30 Ml Oral.Susp) 30 ml PO DAILY PRN PRN Reason: Constipation Metformin HCl (Metformin Hcl Er 500 Mg Tab.Er.24h) 500 mg PO BEDTIME [facility] Last Admin: 02/05/23 20:25 Dose: 500 mg Metoprolol Succinate (Metoprolol Succinate Er 25 Mg Tab.Er.24h) 25 mg PO DAILY [facility]; Protocol Last Admin: 02/05/23 08:06 Dose: 25 mg Senna/Docusate Sodium (Sennosides/Docusate Sodium Tablet) 2 tab PO BID [facility] Last Admin: 02/05/23 20:24 Dose: 2 tab Tamsulosin HCl (Tamsulosin Hcl 0.4 Mg Capsule) 0.4 mg PO DAILY [facility] Last Admin: 02/05/23 08:06 Dose: 0.4 mg Trazodone HCl (Trazodone Hcl 100 Mg Tablet) 100 mg PO BEDTIME PRN PRN Reason: Insomnia Last Admin: 02/06/23 00:47 Dose: 100 mg Allergies Allergies Allergy/AdvReac Type Severity Reaction Status Date / Time No Known Allergies Allergy Verified 02/05/23 14:10 Assessment & Plan Assessment & Plan (1) Schizoaffective disorder, bipolar type: Status: Acute Code(s): F25.0 - Schizoaffective disorder, bipolar type Plan Mr. Bassett is a 67 year-old male with hx of Schizoaffective disorder who self presented to [facility] ED reporting spirits were out to get me. He denied SI. No plan or intent to harm any person but mentally fighting Satan. Pt is on clozaril. He reports taking medication as prescribed but unclear if this is the case. He did receive clozaril 150mg po qhs while in the ED ubt his pharmacy reports he should be on 250mg po qhs. Pt agrees to split the dose. Per nursing, pt was yelling at night and during the day sex, sex, sex. We discussed risks, benefits and alternative treatment options. PLAN 1. Admit to S1. CV, 15 minutes checks for safety 2. Restart clozaril 50mg po daily and 200mg po qhs. continue depakote, but note elevation in LFTs. Monitor ammonia levels. 3. Obtain collateral information 4. Aftercare planning. 02/03 add depakote 500mg po BID (monitor LFT's, ammonia). continue clozaril, continue to titrate. haldol and ativan prn for agitation. it appears he has been on haldol and recently switched to clozaril due to dyskinesia. 02/04 increase clozaril to 100mg po daily and 200mg po qhs. continue depakote. 02/05 increase Clozaril up to 100 mg p.o. q.a.m. and 100 mg p.o. q.p.m. and keep 200 p.o. q.h.s.. Informed Consent: further education needed Reason for continued inpatient stay Substantial Risk for: inability to function, rapid decompensation and med/psych decompensation Time Spent With Patient Time: Total time managing care of this patient today ___20_ minutes.
[2023-02-06] MEDS: Cyanocobalamin (Vitamin B-12) 500 MCG TABLET PO (08:00)
[2023-02-06] MEDS: Divalproex Sodium 500 MG TABLET.DR PO ×2 (08:00→19:45)
[2023-02-06] MEDS: Metoprolol Succinate ER 25 MG TAB.ER.24H PO (08:00)
[2023-02-06] MEDS: Sennosides/Docusate Sodium TABLET 2 TAB PO ×2 (08:00→19:45)
[2023-02-06] MEDS: Finasteride 5 MG TABLET PO (08:00)
[2023-02-06] MEDS: Tamsulosin HCL 0.4 MG CAPSULE PO (08:01)
[2023-02-06] MEDS: cloZAPine 100 MG TABLET PO ×2 (08:01→13:45)
[2023-02-06] MEDS: Furosemide 20 MG TABLET PO (08:01)
--- NOTE | 2023-02-06 16:52 | PC.NURSE ---
Patient exhibiting hypersexual behavior this afternoon evidenced by removing his pants and exposing himself to his sitter. Attempts were made by patient to leave his room without his clothes on. Patient was redirected by his sitter and very quickly dressed himself and corrected his behavior.
[2023-02-06 18:00] VITALS: BP 148/88; PULSE 82; RESP 17; TEMP 36; O2SAT 96
[2023-02-06] MEDS: cloZAPine 100 MG TABLET 200 MG PO (19:45)
[2023-02-06] MEDS: metFORMIN HCl ER 500 MG TAB.ER.24H PO (19:46)
[2023-02-07 06:00] VITALS: BP 119/66; PULSE 80; RESP 16; O2SAT 100
[2023-02-07] MEDS: Levothyroxine Sodium 100 MCG TABLET PO (06:42)
[2023-02-07 07:35] LABS: Glucose, Whole Blood 104 mg/dL (60-115)
[2023-02-07] MEDS: Sennosides/Docusate Sodium TABLET 2 TAB PO ×2 (08:18→20:04)
[2023-02-07] MEDS: Finasteride 5 MG TABLET PO (08:18)
[2023-02-07] MEDS: Metoprolol Succinate ER 25 MG TAB.ER.24H PO (08:18)
[2023-02-07] MEDS: Furosemide 20 MG TABLET PO (08:18)
[2023-02-07] MEDS: Tamsulosin HCL 0.4 MG CAPSULE PO (08:18)
[2023-02-07] MEDS: Divalproex Sodium 500 MG TABLET.DR PO ×2 (08:18→20:05)
[2023-02-07] MEDS: cloZAPine 100 MG TABLET PO ×2 (08:18→13:11)
--- NOTE | 2023-02-07 09:11 | P.PNPSI_ITS ---
Subjective Subjective Date of Service: 02/07/23 Reason For Visit: F20.9 Subjective Notes: Conditional Voluntary Interim History: The nursing staff reported the patient has been alert and oriented to self one-to-one for safety. He remains confused, hypersexual. In the afternoon he was can and pleasant he took all his meds. He slept all last night and he did not needed any p.r.n.. On interview the patient remains confused but easily redirectable. No over-se dation with increase of Clozaril. Mental Status Exam Mental Status Exam Patient Appearance: Appropriate Patient Orientation: Person Level of Consciousness: Awake Patient Behavior: Guarded and Passive Mood Description: Withdrawn Affect Description: Constricted Patient Cognition Impaired: Yes Ability to Follow Directions: Good Speech Pattern: Clear Hallucinations: None Delusions: Not Present Thought Process: Linear Thought Content: positive for [place] and positive for Poverty of Content Judgement: Fair Diagnostics Vital Signs (24Hr): Vital Signs - 24 hr 02/06/23 18:00 02/07/23 06:00 Temperature 96.8 F Pulse Rate 82 80 Respiratory Rate 17 16 Blood Pressure 148/88 H 119/66 Pulse Oximetry 96 100 Oxygen Delivery Method Room Air Room Air BMI result Body Mass Index 26.1 Labs 02/02/23 08:03 Labs: Laboratory Results - last 48 hr 02/07/23 07:32 POC Glucose 104 Imaging Radiology Impressions: ITS Impressions [facility] X-Ray 02/05/23 10:17 IMPRESSION: Constipation Medications Medications Current Medications Acetaminophen (Acetaminophen 325 Mg Tablet) 650 mg PO Q6H PRN PRN Reason: Headache/Pain Mild Scale (1-3) Last Admin: 02/01/23 21:56 Dose: 650 mg Al Hydroxide/Mg Hydroxide (Magnesium Hydrox/Alum Hydrox 30 Ml Oral.Susp) 30 ml PO Q6H PRN PRN Reason: Heartburn/Nausea Clozapine (Clozapine 100 Mg Tablet) 200 mg PO BEDTIME [facility] Last Admin: 02/06/23 19:45 Dose: 200 mg Clozapine (Clozapine 100 Mg Tablet) 100 mg PO BID@0830,1330 [facility] Last Admin: 02/07/23 08:18 Dose: 100 mg Cyanocobalamin (Cyanocobalamin (Vitamin B-12) 500 Mcg Tablet) 500 mcg PO DAILY [facility] Last Admin: 02/06/23 08:00 Dose: 500 mcg Divalproex Sodium (Divalproex Sodium 500 Mg Tablet.) 500 mg PO BID [facility] Last Admin: 02/07/23 08:18 Dose: 500 mg Finasteride (Finasteride 5 Mg Tablet) 5 mg PO DAILY [facility] Last Admin: 02/07/23 08:18 Dose: 5 mg Furosemide (Furosemide 20 Mg Tablet) 20 mg PO DAILY [facility]; Protocol Last Admin: 02/07/23 08:18 Dose: 20 mg Haloperidol (Haloperidol 5 Mg Tablet) 5 mg PO Q6H PRN PRN Reason: agitation Last Admin: 02/06/23 00:47 Dose: 5 mg Hydroxyzine HCl (Hydroxyzine Hcl 25 Mg Tablet) 25 mg PO Q6H PRN PRN Reason: Anxiety Last Admin: 02/05/23 20:24 Dose: 25 mg Levothyroxine Sodium (Levothyroxine Sodium 100 Mcg Tablet) 100 mcg PO DAILY@0700 [facility] Last Admin: 02/07/23 06:42 Dose: 100 mcg Lorazepam (Lorazepam 1 Mg Tablet) 1 mg PO Q6H PRN PRN Reason: agitation Magnesium Hydroxide (Milk Of Magnesia 30 Ml Oral.Susp) 30 ml PO DAILY PRN PRN Reason: Constipation Metformin HCl (Metformin Hcl Er 500 Mg Tab.Er.24h) 500 mg PO BEDTIME [facility] Last Admin: 02/06/23 19:46 Dose: 500 mg Metoprolol Succinate (Metoprolol Succinate Er 25 Mg Tab.Er.24h) 25 mg PO DAILY [facility]; Protocol Last Admin: 02/07/23 08:18 Dose: 25 mg Senna/Docusate Sodium (Sennosides/Docusate Sodium Tablet) 2 tab PO BID [facility] Last Admin: 02/07/23 08:18 Dose: 2 tab Tamsulosin HCl (Tamsulosin Hcl 0.4 Mg Capsule) 0.4 mg PO DAILY [facility] Last Admin: 02/07/23 08:18 Dose: 0.4 mg Trazodone HCl (Trazodone Hcl 100 Mg Tablet) 100 mg PO BEDTIME PRN PRN Reason: Insomnia Last Admin: 02/06/23 00:47 Dose: 100 mg Allergies Allergies Allergy/AdvReac Type Severity Reaction Status Date / Time No Known Allergies Allergy Verified 02/05/23 14:10 Assessment & Plan Assessment & Plan (1) Schizoaffective disorder, bipolar type: Status: Acute Code(s): F25.0 - Schizoaffective disorder, bipolar type Plan Mr. Bassett is a 67 year-old male with hx of Schizoaffective disorder who self presented to [facility] ED reporting spirits were out to get me. He denied SI. No plan or intent to harm any person but mentally fighting Satan. Pt is on clozaril. He reports taking medication as prescribed but unclear if this is the case. He did receive clozaril 150mg po qhs while in the ED ubt his pharmacy reports he should be on 250mg po qhs. Pt agrees to split the dose. Per nursing, pt was yelling at night and during the day sex, sex, sex. We discussed risks, benefits and alternative treatment options. PLAN 1. Admit to S1. CV, 15 minutes checks for safety 2. Restart clozaril 50mg po daily and 200mg po qhs. continue depakote, but note elevation in LFTs. Monitor ammonia levels. 3. Obtain collateral information 4. Aftercare planning. 02/03 add depakote 500mg po BID (monitor LFT's, ammonia). continue clozaril, continue to titrate. haldol and ativan prn for agitation. it appears he has been on haldol and recently switched to clozaril due to dyskinesia. 02/04 increase clozaril to 100mg po daily and 200mg po qhs. continue depakote. 02/05 increase Clozaril up to 100 mg p.o. q.a.m. and 100 mg p.o. q.p.m. and keep 200 p.o. q.h.s.. 02/06 keep same treatment Reason for continued inpatient stay Substantial Risk for: inability to function, rapid decompensation and med/psych decompensation Time Spent With Patient Time: Total time managing care of this patient today _20___ minutes.
[2023-02-07 12:54] LABS: Clozapine (Clozaril) 13 mcg/L; Norclozapine <10 mcg/L (25-400)
[2023-02-07] MEDS: Cyanocobalamin (Vitamin B-12) 500 MCG TABLET PO (13:11)
[2023-02-07 18:54] VITALS: BP 120/78; PULSE 80; RESP 20; TEMP 36.1; O2SAT 94
[2023-02-07] MEDS: metFORMIN HCl ER 500 MG TAB.ER.24H PO (20:04)
[2023-02-07] MEDS: traZODone HCL 100 MG TABLET PO (20:04)
[2023-02-07] MEDS: hydrOXYzine HCL 25 MG TABLET PO (20:04)
[2023-02-07] MEDS: cloZAPine 100 MG TABLET 200 MG PO (20:04)
[2023-02-08] MEDS: Levothyroxine Sodium 100 MCG TABLET PO (06:49)
[2023-02-08 07:17] LABS: Glucose, Whole Blood 110 mg/dL (60-115)
[2023-02-08 07:55] VITALS: BP 122/68; PULSE 88; RESP 18; TEMP 36.6; O2SAT 97
[2023-02-08 08:01] LABS: Neut%MD 60.2 %; Neutrophils Absolute Auto 3.3 x10*3/uL (2.0-8.3); WBCANC 5.5 X10*3/uL
[2023-02-08] MEDS: Tamsulosin HCL 0.4 MG CAPSULE PO (08:22)
[2023-02-08] MEDS: Cyanocobalamin (Vitamin B-12) 500 MCG TABLET PO (08:22)
[2023-02-08] MEDS: Divalproex Sodium 500 MG TABLET.DR PO ×2 (08:22→20:04)
[2023-02-08] MEDS: cloZAPine 100 MG TABLET PO ×2 (08:22→14:08)
[2023-02-08] MEDS: Furosemide 20 MG TABLET PO (08:22)
[2023-02-08] MEDS: Metoprolol Succinate ER 25 MG TAB.ER.24H PO (08:22)
[2023-02-08] MEDS: Sennosides/Docusate Sodium TABLET 2 TAB PO ×2 (08:22→20:05)
[2023-02-08] MEDS: Finasteride 5 MG TABLET PO (08:36)
[2023-02-08 10:40] LABS: Ammonia 21 umol/L (13-55)
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
[2023-02-08] MEDS: cloZAPine 100 MG TABLET 200 MG PO (20:05)
[2023-02-08] MEDS: traZODone HCL 100 MG TABLET PO (20:05)
[2023-02-08] MEDS: metFORMIN HCl ER 500 MG TAB.ER.24H PO (20:05)
[2023-02-08 20:06] VITALS: BP 142/77; PULSE 90; RESP 18; TEMP 36; O2SAT 99
[2023-02-09] MEDS: hydrOXYzine HCL 25 MG TABLET PO (03:00)
[2023-02-09] MEDS: HaloperidoL 5 MG TABLET PO (03:38)
[2023-02-09] MEDS: Magnesium Hydrox/Alum Hydrox 30 ML ORAL.SUSP PO (03:39)
[2023-02-09] MEDS: Levothyroxine Sodium 100 MCG TABLET PO (05:56)
[2023-02-09 07:28] LABS: Glucose, Whole Blood 109 mg/dL (60-115)
[2023-02-09 08:05] VITALS: BP 130/74; PULSE 74; RESP 18; TEMP 36.8; O2SAT 95
[2023-02-09] MEDS: Finasteride 5 MG TABLET PO (08:12)
[2023-02-09] MEDS: Furosemide 20 MG TABLET PO (08:12)
[2023-02-09] MEDS: Sennosides/Docusate Sodium TABLET 2 TAB PO ×2 (08:12→20:12)
[2023-02-09] MEDS: Tamsulosin HCL 0.4 MG CAPSULE PO (08:13)
[2023-02-09] MEDS: Metoprolol Succinate ER 25 MG TAB.ER.24H PO (08:13)
[2023-02-09] MEDS: Cyanocobalamin (Vitamin B-12) 500 MCG TABLET PO (08:13)
[2023-02-09] MEDS: Divalproex Sodium 500 MG TABLET.DR PO ×2 (08:13→20:12)
[2023-02-09] MEDS: cloZAPine 100 MG TABLET PO ×2 (08:13→13:49)
[2023-02-09 08:20] LABS: Creatinine Clr Calc Pharmacy 83.7; Estimated Glomerular Filt Rate > 60
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
[2023-02-09 19:30] VITALS: BP 137/68; PULSE 92; RESP 18; TEMP 36.1; O2SAT 98
[2023-02-09] MEDS: Acetaminophen 325 MG TABLET 650 MG PO (20:13)
[2023-02-09] MEDS: cloZAPine 100 MG TABLET 200 MG PO (20:13)
[2023-02-09] MEDS: metFORMIN HCl ER 500 MG TAB.ER.24H PO (20:13)
[2023-02-09] MEDS: traZODone HCL 100 MG TABLET PO (20:13)
[2023-02-10] MEDS: hydrOXYzine HCL 25 MG TABLET PO (00:20)
[2023-02-10] MEDS: Levothyroxine Sodium 100 MCG TABLET PO (06:15)
[2023-02-10 07:22] LABS: Glucose, Whole Blood 103 mg/dL (60-115)
[2023-02-10 08:17] VITALS: BP 145/76; PULSE 95; RESP 18; TEMP 36.1; O2SAT 97
[2023-02-10] MEDS: Cyanocobalamin (Vitamin B-12) 500 MCG TABLET PO (08:18)
[2023-02-10] MEDS: Tamsulosin HCL 0.4 MG CAPSULE PO (08:18)
[2023-02-10] MEDS: Metoprolol Succinate ER 25 MG TAB.ER.24H PO (08:18)
[2023-02-10] MEDS: Sennosides/Docusate Sodium TABLET 2 TAB PO ×2 (08:19→21:32)
[2023-02-10] MEDS: Finasteride 5 MG TABLET PO (08:19)
[2023-02-10] MEDS: Furosemide 20 MG TABLET PO (08:19)
[2023-02-10] MEDS: cloZAPine 100 MG TABLET 200 MG PO ×2 (08:19→21:32)
[2023-02-10] MEDS: Divalproex Sodium 500 MG TABLET.DR PO ×2 (08:22→21:31)
--- NOTE | 2023-02-10 08:41 | P.PNPSI_ITS ---
Subjective Subjective Date of Service: 02/10/23 Reason For Visit: F20.9 Subjective Notes: Conditional Voluntary Interim History: Per nursing, pt slept through the night. Pt reports he feels safer here. He reports he thought some of the staff were Satan children but now realizes they are not. He reports he still not sure about peers- and he asks this clinical writer if I am sure that they are not evil. Pt able to state so you think is my mind playing tricks?they are not evil? He reports some nightmares at night and waking up fearful. He reports less VH/AH. He reports he has not been sexually assaulted by the devil. He takes medications as prescribed. No side effects. VS- stable. Review of Systems Review of Systems Pt denies pain, including chest pain. No changes in vision. Noted resting bilat tremor He denies constipation, reports last BM yesterday. He denies abdominal pain. He denies headaches. Mental Status Exam Mental Status Exam Narrative: Appearance: wearing casual clothing, slightly disheveled, in NAD Behavior: cooperative Psychomotor: resting bilat tremors Speech: mostly clear, regular rate/rhythm, spontaneous TP: mostly linear, no overt derailment TC: dealing with Satan's children not feeling afraid Mood: good Affect: constricted, but does brighten up at times. SI: denies HI: denies VH/AH: less AH/VH of Satan Delusions: less persecutory delusions of satans children trying to kill him Insight/judgment: fair x 2 Memory/cog: alert, oriented x 3 Diagnostics Vital Signs (24Hr): Vital Signs - 24 hr 02/09/23 19:30 02/10/23 08:17 Temperature 96.9 F 96.9 F Pulse Rate 92 95 Respiratory Rate 18 18 Blood Pressure 137/68 145/76 H Pulse Oximetry 98 97 Oxygen Delivery Method Room Air Room Air BMI result Body Mass Index 26.1 Labs 02/09/23 07:53 Labs: Laboratory Results - last 48 hr 02/08/23 02/09/23 02/09/23 10:18 07:24 07:53 Creatinine 0.86 Estim Creat Clear Calc 83.7 Estimated GFR > 60 POC Glucose 109 Ammonia 21 02/10/23 07:17 Creatinine Estim Creat Clear Calc Estimated GFR POC Glucose 103 Ammonia Imaging Radiology Impressions: ITS Impressions KUB X-Ray 02/05/23 10:17 IMPRESSION: Constipation Medications Medications Current Medications Acetaminophen (Acetaminophen 325 Mg Tablet) 650 mg PO Q6H PRN PRN Reason: Headache/Pain Mild Scale (1-3) Last Admin: 02/09/23 20:13 Dose: 650 mg Al Hydroxide/Mg Hydroxide (Magnesium Hydrox/Alum Hydrox 30 Ml Oral.Susp) 30 ml PO Q6H PRN PRN Reason: Heartburn/Nausea Last Admin: 02/09/23 03:39 Dose: 30 ml Clozapine (Clozapine 100 Mg Tablet) 200 mg PO BEDTIME [facility] Last Admin: 02/09/23 20:13 Dose: 200 mg Clozapine (Clozapine 100 Mg Tablet) 200 mg PO DAILY [facility] Last Admin: 02/10/23 08:19 Dose: 200 mg Cyanocobalamin (Cyanocobalamin (Vitamin B-12) 500 Mcg Tablet) 500 mcg PO DAILY [facility] Last Admin: 02/10/23 08:18 Dose: 500 mcg Divalproex Sodium (Divalproex Sodium 500 Mg Tablet.Dr) 500 mg PO BID [facility] Last Admin: 02/10/23 08:22 Dose: 500 mg Finasteride (Finasteride 5 Mg Tablet) 5 mg PO DAILY [facility] Last Admin: 02/10/23 08:19 Dose: 5 mg Furosemide (Furosemide 20 Mg Tablet) 20 mg PO DAILY [facility]; Protocol Last Admin: 02/10/23 08:19 Dose: 20 mg Haloperidol (Haloperidol 5 Mg Tablet) 5 mg PO Q6H PRN PRN Reason: agitation Last Admin: 02/09/23 03:38 Dose: 5 mg Hydroxyzine HCl (Hydroxyzine Hcl 25 Mg Tablet) 25 mg PO Q6H PRN PRN Reason: Anxiety Last Admin: 02/10/23 00:20 Dose: 25 mg Levothyroxine Sodium (Levothyroxine Sodium 100 Mcg Tablet) 100 mcg PO DAILY@0700 [facility] Last Admin: 02/10/23 06:15 Dose: 100 mcg Magnesium Hydroxide (Milk Of Magnesia 30 Ml Oral.Susp) 30 ml PO DAILY PRN PRN Reason: Constipation Metformin HCl (Metformin Hcl Er 500 Mg Tab.Er.24h) 500 mg PO BEDTIME [facility] Last Admin: 02/09/23 20:13 Dose: 500 mg Metoprolol Succinate (Metoprolol Succinate Er 25 Mg Tab.Er.24h) 25 mg PO DAILY [facility]; Protocol Last Admin: 02/10/23 08:18 Dose: 25 mg Senna/Docusate Sodium (Sennosides/Docusate Sodium Tablet) 2 tab PO BID [facility] Last Admin: 02/10/23 08:19 Dose: 2 tab Tamsulosin HCl (Tamsulosin Hcl 0.4 Mg Capsule) 0.4 mg PO DAILY [facility] Last Admin: 02/10/23 08:18 Dose: 0.4 mg Trazodone HCl (Trazodone Hcl 100 Mg Tablet) 100 mg PO BEDTIME PRN PRN Reason: Insomnia Last Admin: 02/09/23 20:13 Dose: 100 mg Allergies Allergies Allergy/AdvReac Type Severity Reaction Status Date / Time No Known Allergies Allergy Verified 02/05/23 14:10 Assessment & Plan Assessment & Plan (1) Schizoaffective disorder, bipolar type: Status: Acute Code(s): F25.0 - Schizoaffective disorder, bipolar type Plan Mr. Bassett is a 67 year-old male with hx of Schizoaffective disorder who self presented to [facility] ED reporting spirits were out to get me. He denied SI. No plan or intent to harm any person but mentally fighting Satan. Pt is on clozaril. He reports taking medication as prescribed but unclear if this is the case. He did receive clozaril 150mg po qhs while in the ED ubt his pharmacy reports he should be on 250mg po qhs. Pt agrees to split the dose. Per nursing, pt was yelling at night and during the day sex, sex, sex. We discussed risks, benefits and alternative treatment options. PLAN 1. Admit to S1. CV, 15 minutes checks for safety 2. Restart clozaril 50mg po daily and 200mg po qhs. continue depakote, but note elevation in LFTs. Monitor ammonia levels. 3. Obtain collateral information 4. Aftercare planning. 02/03 add depakote 500mg po BID (monitor LFT's, ammonia). continue clozaril, continue to titrate. haldol and ativan prn for agitation. it appears he has been on haldol and recently switched to clozaril due to dyskinesia. 02/04 increase clozaril to 100mg po daily and 200mg po qhs. continue depakote. 02/05 increase Clozaril up to 100 mg p.o. q.a.m. and 100 mg p.o. q.p.m. and keep 200 p.o. q.h.s.. 02/06 keep same treatment 02/08 continue current medications. clozaril level at admission was almost zero, which means he was not taking clozaril. will recheck levels in several days 02/09 continue tx. will check to 15 minutes checks for safety. 02/10 continue tx. Reason for continued inpatient stay Substantial Risk for: inability to function Time Spent With Patient Time: Total time managing care of this patient today ____ minutes.
[2023-02-10 19:35] VITALS: BP 147/84; PULSE 92; RESP 18; TEMP 36.2; O2SAT 99
[2023-02-10] MEDS: traZODone HCL 100 MG TABLET PO (21:31)
[2023-02-10] MEDS: metFORMIN HCl ER 500 MG TAB.ER.24H PO (21:31)
[2023-02-11] MEDS: Levothyroxine Sodium 100 MCG TABLET PO (06:48)
[2023-02-11 07:00] VITALS: BMI 27.5
[2023-02-11 07:29] LABS: Glucose, Whole Blood 107 mg/dL (60-115)
[2023-02-11 08:00] VITALS: BP 169/80; PULSE 82; RESP 18; TEMP 36.6; O2SAT 98
[2023-02-11] MEDS: Tamsulosin HCL 0.4 MG CAPSULE PO (08:07)
[2023-02-11] MEDS: Finasteride 5 MG TABLET PO (08:07)
[2023-02-11] MEDS: Divalproex Sodium 500 MG TABLET.DR PO ×2 (08:07→20:37)
[2023-02-11] MEDS: Furosemide 20 MG TABLET PO (08:07)
[2023-02-11] MEDS: Cyanocobalamin (Vitamin B-12) 500 MCG TABLET PO (08:07)
[2023-02-11] MEDS: Metoprolol Succinate ER 25 MG TAB.ER.24H PO (08:07)
[2023-02-11] MEDS: Sennosides/Docusate Sodium TABLET 2 TAB PO ×2 (08:07→20:37)
[2023-02-11] MEDS: cloZAPine 100 MG TABLET 200 MG PO ×2 (08:07→20:37)
--- NOTE | 2023-02-11 12:22 | P.PNPSI_ITS ---
Subjective Subjective Date of Service: 02/11/23 Reason For Visit: F20.9 Subjective Notes: Conditional Voluntary Interim History: Per nursing, pt slept through the night. Pt has been more visible he attended groups yesterday and was appropriate. He denies SI/HI. No sexualized comments. He states he feels safe here, less suspicious about peers or staff. not intrusive with peers or staff. No aggression towards self or others. Review of Systems Review of Systems Pt denies pain, including chest pain. No changes in vision. Noted resting bilat tremor He denies constipation, reports last BM yesterday. He denies abdominal pain. He denies headaches. Mental Status Exam Mental Status Exam Narrative: Appearance: wearing casual clothing, slightly disheveled, in NAD Behavior: cooperative Psychomotor: resting bilat tremors Speech: mostly clear, regular rate/rhythm, spontaneous TP: mostly linear, no overt derailment TC: dealing with Satan's children not feeling afraid Mood: good Affect: constricted, but does brighten up at times. SI: denies HI: denies VH/AH: less AH/VH of Satan Delusions: less persecutory delusions of satans children trying to kill him Insight/judgment: fair x 2 Memory/cog: alert, oriented x 3 Diagnostics Vital Signs (24Hr): Vital Signs - 24 hr 02/10/23 19:35 02/11/23 08:00 Temperature 97.2 F 97.8 F Pulse Rate 92 82 Respiratory Rate 18 18 Blood Pressure 147/84 H 169/80 H Pulse Oximetry 99 98 Oxygen Delivery Method Room Air Room Air BMI result Body Mass Index 26.1 Labs 02/09/23 07:53 Labs: Laboratory Results - last 48 hr 02/10/23 02/11/23 07:17 07:25 POC Glucose 103 107 Imaging Radiology Impressions: ITS Impressions KUB X-Ray 02/05/23 10:17 IMPRESSION: Constipation Medications Medications Current Medications Acetaminophen (Acetaminophen 325 Mg Tablet) 650 mg PO Q6H PRN PRN Reason: Headache/Pain Mild Scale (1-3) Last Admin: 02/09/23 20:13 Dose: 650 mg Al Hydroxide/Mg Hydroxide (Magnesium Hydrox/Alum Hydrox 30 Ml Oral.Susp) 30 ml PO Q6H PRN PRN Reason: Heartburn/Nausea Last Admin: 02/09/23 03:39 Dose: 30 ml Clozapine (Clozapine 100 Mg Tablet) 200 mg PO BEDTIME [facility] Last Admin: 02/10/23 21:32 Dose: 200 mg Clozapine (Clozapine 100 Mg Tablet) 200 mg PO DAILY [facility] Last Admin: 02/11/23 08:07 Dose: 200 mg Cyanocobalamin (Cyanocobalamin (Vitamin B-12) 500 Mcg Tablet) 500 mcg PO DAILY [facility] Last Admin: 02/11/23 08:07 Dose: 500 mcg Divalproex Sodium (Divalproex Sodium 500 Mg Tablet.Dr) 500 mg PO BID [facility] Last Admin: 02/11/23 08:07 Dose: 500 mg Finasteride (Finasteride 5 Mg Tablet) 5 mg PO DAILY [facility] Last Admin: 02/11/23 08:07 Dose: 5 mg Furosemide (Furosemide 20 Mg Tablet) 20 mg PO DAILY [facility]; Protocol Last Admin: 02/11/23 08:07 Dose: 20 mg Haloperidol (Haloperidol 5 Mg Tablet) 5 mg PO Q6H PRN PRN Reason: agitation Last Admin: 02/09/23 03:38 Dose: 5 mg Hydroxyzine HCl (Hydroxyzine Hcl 25 Mg Tablet) 25 mg PO Q6H PRN PRN Reason: Anxiety Last Admin: 02/10/23 00:20 Dose: 25 mg Levothyroxine Sodium (Levothyroxine Sodium 100 Mcg Tablet) 100 mcg PO DAILY@0700 [facility] Last Admin: 02/11/23 06:48 Dose: 100 mcg Magnesium Hydroxide (Milk Of Magnesia 30 Ml Oral.Susp) 30 ml PO DAILY PRN PRN Reason: Constipation Metformin HCl (Metformin Hcl Er 500 Mg Tab.Er.24h) 500 mg PO BEDTIME [facility] Last Admin: 02/10/23 21:31 Dose: 500 mg Metoprolol Succinate (Metoprolol Succinate Er 25 Mg Tab.Er.24h) 25 mg PO DAILY [facility]; Protocol Last Admin: 02/11/23 08:07 Dose: 25 mg Senna/Docusate Sodium (Sennosides/Docusate Sodium Tablet) 2 tab PO BID [facility] Last Admin: 02/11/23 08:07 Dose: 2 tab Tamsulosin HCl (Tamsulosin Hcl 0.4 Mg Capsule) 0.4 mg PO DAILY [facility] Last Admin: 02/11/23 08:07 Dose: 0.4 mg Trazodone HCl (Trazodone Hcl 100 Mg Tablet) 100 mg PO BEDTIME PRN PRN Reason: Insomnia Last Admin: 02/10/23 21:31 Dose: 100 mg Allergies Allergies Allergy/AdvReac Type Severity Reaction Status Date / Time No Known Allergies Allergy Verified 02/05/23 14:10 Assessment & Plan Assessment & Plan (1) Schizoaffective disorder, bipolar type: Status: Acute Code(s): F25.0 - Schizoaffective disorder, bipolar type Plan Mr. Bassett is a 67 year-old male with hx of Schizoaffective disorder who self presented to [facility] ED reporting spirits were out to get me. He denied SI. No plan or intent to harm any person but mentally fighting Satan. Pt is on clozaril. He reports taking medication as prescribed but unclear if this is the case. He did receive clozaril 150mg po qhs while in the ED ubt his pharmacy reports he should be on 250mg po qhs. Pt agrees to split the dose. Per nursing, pt was yelling at night and during the day sex, sex, sex. We discussed risks, benefits and alternative treatment options. PLAN 1. Admit to S1. CV, 15 minutes checks for safety 2. Restart clozaril 50mg po daily and 200mg po qhs. continue depakote, but note elevation in LFTs. Monitor ammonia levels. 3. Obtain collateral information 4. Aftercare planning. 02/03 add depakote 500mg po BID (monitor LFT's, ammonia). continue clozaril, continue to titrate. haldol and ativan prn for agitation. it appears he has been on haldol and recently switched to clozaril due to dyskinesia. 02/04 increase clozaril to 100mg po daily and 200mg po qhs. continue depakote. 02/05 increase Clozaril up to 100 mg p.o. q.a.m. and 100 mg p.o. q.p.m. and keep 200 p.o. q.h.s.. 02/06 keep same treatment 02/08 continue current medications. clozaril level at admission was almost zero, which means he was not taking clozaril. will recheck levels in several days 02/09 continue tx. will check to 15 minutes checks for safety. 02/10 continue tx. 02/11 continue tx. pt much less paranoid, less AH/VH. Taking meds as prescribed no side effects noted or reported. plan for dc next Wednesday. Reason for continued inpatient stay Substantial Risk for: inability to function Time Spent With Patient Time: Total time managing care of this patient today ____ minutes.
[2023-02-11] MEDS: Magnesium Hydrox/Alum Hydrox 30 ML ORAL.SUSP PO (17:26)
[2023-02-11 18:00] VITALS: BP 133/80; PULSE 92; RESP 18; TEMP 36; O2SAT 100
[2023-02-11] MEDS: metFORMIN HCl ER 500 MG TAB.ER.24H PO (20:37)
[2023-02-11] MEDS: Milk of Magnesia 30 ML ORAL.SUSP PO (22:53)
[2023-02-12] MEDS: Levothyroxine Sodium 100 MCG TABLET PO (06:39)
[2023-02-12 06:57] LABS: Glucose, Whole Blood 100 mg/dL (60-115)
[2023-02-12 07:55] VITALS: BP 139/75; PULSE 86; RESP 18; TEMP 36.8; O2SAT 99
[2023-02-12] MEDS: Furosemide 20 MG TABLET PO (08:15)
[2023-02-12] MEDS: Metoprolol Succinate ER 25 MG TAB.ER.24H PO (08:15)
[2023-02-12] MEDS: Finasteride 5 MG TABLET PO (08:15)
[2023-02-12] MEDS: Sennosides/Docusate Sodium TABLET 2 TAB PO ×2 (08:15→20:07)
[2023-02-12] MEDS: Tamsulosin HCL 0.4 MG CAPSULE PO (08:15)
[2023-02-12] MEDS: Cyanocobalamin (Vitamin B-12) 500 MCG TABLET PO (08:15)
[2023-02-12] MEDS: Divalproex Sodium 500 MG TABLET.DR PO ×2 (08:15→20:06)
[2023-02-12] MEDS: cloZAPine 100 MG TABLET 200 MG PO ×2 (08:15→20:06)
[2023-02-12 09:21] LABS: Valproate 40.9 mcg/mL (50.0-100.0)
--- NOTE | 2023-02-12 14:50 | HO.PSYCHPN ---
Subjective Subjective Date of Service: 02/12/23 Reason For Visit: F20.9 Subjective Notes: Conditional Voluntary Interim History: Per nursing, pt slept through the night. Pt reports he is less worried about staff or peers being evil. He does ask this ghost writer if I think God will cut my arm? He denies SI/HI. Less AH of devil or Satan. Less yelling outbursts which are related to when he hears voices. No aggression towards self or others. He is taking medications as prescribed. Depakote level today- 40's. VS stable. Review of Systems Review of Systems Pt denies pain, including chest pain. No changes in vision. Noted resting bilat tremor He denies constipation, reports last BM yesterday. He denies abdominal pain. He denies headaches. Mental Status Exam Mental Status Exam Narrative: Appearance: wearing casual clothing, slightly disheveled, in NAD Behavior: cooperative Psychomotor: resting bilat tremors Speech: mostly clear, regular rate/rhythm, spontaneous TP: mostly linear, no overt derailment TC: dealing with Satan's children not feeling afraid Mood: good Affect: constricted, but does brighten up at times. SI: denies HI: denies VH/AH: less AH/VH of Satan Delusions: less persecutory delusions of satans children trying to kill him Insight/judgment: fair x 2 Memory/cog: alert, oriented x 3 Diagnostics Vital Signs (24Hr): Vital Signs - 24 hr 02/11/23 18:00 02/12/23 07:55 Temperature 96.8 F 98.2 F Pulse Rate 92 86 Respiratory Rate 18 18 Blood Pressure 133/80 139/75 Pulse Oximetry 100 99 Oxygen Delivery Method Room Air Room Air BMI result Body Mass Index 27.5 Labs 02/09/23 07:53 Labs: Laboratory Results - last 48 hr 02/11/23 02/12/23 02/12/23 07:25 06:41 08:00 POC Glucose 107 100 Valproic Acid 40.9 L Imaging Radiology Impressions: ITS Impressions [facility] X-Ray 02/05/23 10:17 IMPRESSION: Constipation Medications Medications Current Medications Acetaminophen (Acetaminophen 325 Mg Tablet) 650 mg PO Q6H PRN PRN Reason: Headache/Pain Mild Scale (1-3) Last Admin: 02/09/23 20:13 Dose: 650 mg Al Hydroxide/Mg Hydroxide (Magnesium Hydrox/Alum Hydrox 30 Ml Oral.Susp) 30 ml PO Q6H PRN PRN Reason: Heartburn/Nausea Last Admin: 02/11/23 17:26 Dose: 30 ml Clozapine (Clozapine 100 Mg Tablet) 200 mg PO BEDTIME [facility] Last Admin: 02/11/23 20:37 Dose: 200 mg Clozapine (Clozapine 100 Mg Tablet) 200 mg PO DAILY [facility] Last Admin: 02/12/23 08:15 Dose: 200 mg Cyanocobalamin (Cyanocobalamin (Vitamin B-12) 500 Mcg Tablet) 500 mcg PO DAILY [facility] Last Admin: 02/12/23 08:15 Dose: 500 mcg Divalproex Sodium (Divalproex Sodium 500 Mg Tablet.Dr) 500 mg PO BID [facility] Last Admin: 02/12/23 08:15 Dose: 500 mg Finasteride (Finasteride 5 Mg Tablet) 5 mg PO DAILY [facility] Last Admin: 02/12/23 08:15 Dose: 5 mg Furosemide (Furosemide 20 Mg Tablet) 20 mg PO DAILY [facility]; Protocol Last Admin: 02/12/23 08:15 Dose: 20 mg Haloperidol (Haloperidol 5 Mg Tablet) 5 mg PO Q6H PRN PRN Reason: agitation Last Admin: 02/09/23 03:38 Dose: 5 mg Hydroxyzine HCl (Hydroxyzine Hcl 25 Mg Tablet) 25 mg PO Q6H PRN PRN Reason: Anxiety Last Admin: 02/10/23 00:20 Dose: 25 mg Levothyroxine Sodium (Levothyroxine Sodium 100 Mcg Tablet) 100 mcg PO DAILY@0700 [facility] Last Admin: 02/12/23 06:39 Dose: 100 mcg Magnesium Hydroxide (Milk Of Magnesia 30 Ml Oral.Susp) 30 ml PO DAILY PRN PRN Reason: Constipation Last Admin: 02/11/23 22:53 Dose: 30 ml Metformin HCl (Metformin Hcl Er 500 Mg Tab.Er.24h) 500 mg PO BEDTIME [facility] Last Admin: 02/11/23 20:37 Dose: 500 mg Metoprolol Succinate (Metoprolol Succinate Er 25 Mg Tab.Er.24h) 25 mg PO DAILY [facility]; Protocol Last Admin: 02/12/23 08:15 Dose: 25 mg Senna/Docusate Sodium (Sennosides/Docusate Sodium Tablet) 2 tab PO BID [facility] Last Admin: 02/12/23 08:15 Dose: 2 tab Tamsulosin HCl (Tamsulosin Hcl 0.4 Mg Capsule) 0.4 mg PO DAILY [facility] Last Admin: 02/12/23 08:15 Dose: 0.4 mg Trazodone HCl (Trazodone Hcl 100 Mg Tablet) 100 mg PO BEDTIME PRN PRN Reason: Insomnia Last Admin: 02/10/23 21:31 Dose: 100 mg Allergies Allergies Allergy/AdvReac Type Severity Reaction Status Date / Time No Known Allergies Allergy Verified 02/05/23 14:10 Assessment & Plan Assessment & Plan (1) Schizoaffective disorder, bipolar type: Status: Acute Code(s): F25.0 - Schizoaffective disorder, bipolar type Plan Mr. Bassett is a 67 year-old male with hx of Schizoaffective disorder who self presented to [facility] ED reporting spirits were out to get me. He denied SI. No plan or intent to harm any person but mentally fighting Satan. Pt is on clozaril. He reports taking medication as prescribed but unclear if this is the case. He did receive clozaril 150mg po qhs while in the ED ubt his pharmacy reports he should be on 250mg po qhs. Pt agrees to split the dose. Per nursing, pt was yelling at night and during the day sex, sex, sex. We discussed risks, benefits and alternative treatment options. PLAN 1. Admit to S1. CV, 15 minutes checks for safety 2. Restart clozaril 50mg po daily and 200mg po qhs. continue depakote, but note elevation in LFTs. Monitor ammonia levels. 3. Obtain collateral information 4. Aftercare planning. 02/03 add depakote 500mg po BID (monitor LFT's, ammonia). continue clozaril, continue to titrate. haldol and ativan prn for agitation. it appears he has been on haldol and recently switched to clozaril due to dyskinesia. 02/04 increase clozaril to 100mg po daily and 200mg po qhs. continue depakote. 02/05 increase Clozaril up to 100 mg p.o. q.a.m. and 100 mg p.o. q.p.m. and keep 200 p.o. q.h.s.. 02/06 keep same treatment 02/08 continue current medications. clozaril level at admission was almost zero, which means he was not taking clozaril. will recheck levels in several days 02/09 continue tx. will check to 15 minutes checks for safety. 02/10 continue tx. 02/11 continue tx. pt much less paranoid, less AH/VH. Taking meds as prescribed no side effects noted or reported. plan for dc next Wednesday. 02/12 continue tx.may increase depakote dose to 500mg po daily and 750mg po qhs. Reason for continued inpatient stay Substantial Risk for: inability to function Time Spent With Patient Time: Total time managing care of this patient today ____ minutes.
[2023-02-12 18:00] VITALS: BP 153/83; PULSE 81; RESP 18; TEMP 36.2; O2SAT 99
[2023-02-12] MEDS: metFORMIN HCl ER 500 MG TAB.ER.24H PO (20:07)
[2023-02-13 06:00] VITALS: BP 152/83; PULSE 90; RESP 18; TEMP 36.8; O2SAT 99
[2023-02-13] MEDS: Levothyroxine Sodium 100 MCG TABLET PO (06:14)
[2023-02-13] MEDS: Sennosides/Docusate Sodium TABLET 2 TAB PO ×2 (08:04→20:28)
[2023-02-13] MEDS: Furosemide 20 MG TABLET PO (08:04)
[2023-02-13] MEDS: Tamsulosin HCL 0.4 MG CAPSULE PO (08:04)
[2023-02-13] MEDS: Finasteride 5 MG TABLET PO (08:04)
[2023-02-13] MEDS: Metoprolol Succinate ER 25 MG TAB.ER.24H PO (08:05)
[2023-02-13] MEDS: cloZAPine 100 MG TABLET 200 MG PO ×2 (08:05→20:27)
[2023-02-13] MEDS: Cyanocobalamin (Vitamin B-12) 500 MCG TABLET PO (08:05)
[2023-02-13] MEDS: Divalproex Sodium 500 MG TABLET.DR PO ×2 (08:05→20:28)
[2023-02-13 10:21] LABS: Glucose, Whole Blood 94 mg/dL (60-115)
[2023-02-13 18:00] VITALS: BP 123/71; PULSE 92; RESP 18; TEMP 36.2; O2SAT 96
--- NOTE | 2023-02-13 18:57 | HO.PSYCHPN ---
Subjective Subjective Date of Service: 02/13/23 Reason For Visit: F20.9 Interim History: Per nursing, pt slept through the night. Pt reports he is less worried about staff or peers being evil. Pt reports upset stomach at times. He denies SI/HI. Less AH of devil or Satan. Less yelling outbursts which are related to when he hears voices. Had one outburst today but quickly redirected; No aggression towards self or others. He is taking medications as prescribed. VS stable. Medication Compliance: Yes Side effects from medications: No Attending Groups: Yes Review of Systems Acute medical concerns: No Medical Review of Systems: unchanged Review of Systems Review of Systems Pt denies pain, including chest pain. No changes in vision. Noted resting bilat tremor He denies constipation, reports last BM yesterday. He denies abdominal pain. He denies headaches. Mental Status Exam Mental Status Exam Narrative: Appearance: wearing casual clothing, slightly disheveled, in NAD Behavior: cooperative Psychomotor: resting bilat tremors Speech: mostly clear, regular rate/rhythm, spontaneous TP: mostly linear, no overt derailment TC: dealing with Satan's children not feeling afraid Mood: good Affect: constricted, but does brighten up at times. SI: denies HI: denies VH/AH: less AH/VH of Satan Delusions: less persecutory delusions of satans children trying to kill him Insight/judgment: fair x 2 Memory/cog: alert, oriented x 3 Patient Appearance: Appropriate Patient Orientation: Person Level of Consciousness: Awake Patient Behavior: Guarded and Passive Mood Description: Withdrawn Affect Description: Constricted Patient Cognition Impaired: Yes Ability to Follow Directions: Good Speech Pattern: Clear Diagnostics Vital Signs (24Hr): Vital Signs - 24 hr 02/13/23 06:00 Temperature 98.2 F Pulse Rate 90 Respiratory Rate 18 Blood Pressure 152/83 H Pulse Oximetry 99 Oxygen Delivery Method Room Air BMI result Body Mass Index 27.5 Labs 02/09/23 07:53 Labs: Laboratory Results - last 48 hr 02/12/23 02/12/23 02/13/23 06:41 08:00 07:15 POC Glucose 100 94 Valproic Acid 40.9 L Imaging Radiology Impressions: ITS Impressions KUB X-Ray 02/05/23 10:17 IMPRESSION: Constipation Medications Medications Current Medications Acetaminophen (Acetaminophen 325 Mg Tablet) 650 mg PO Q6H PRN PRN Reason: Headache/Pain Mild Scale (1-3) Last Admin: 02/09/23 20:13 Dose: 650 mg Al Hydroxide/Mg Hydroxide (Magnesium Hydrox/Alum Hydrox 30 Ml Oral.Susp) 30 ml PO Q6H PRN PRN Reason: Heartburn/Nausea Last Admin: 02/11/23 17:26 Dose: 30 ml Clozapine (Clozapine 100 Mg Tablet) 200 mg PO BEDTIME [facility] Last Admin: 02/12/23 20:06 Dose: 200 mg Clozapine (Clozapine 100 Mg Tablet) 200 mg PO DAILY [facility] Last Admin: 02/13/23 08:05 Dose: 200 mg Cyanocobalamin (Cyanocobalamin (Vitamin B-12) 500 Mcg Tablet) 500 mcg PO DAILY [facility] Last Admin: 02/13/23 08:05 Dose: 500 mcg Divalproex Sodium (Divalproex Sodium 500 Mg Tablet.Dr) 500 mg PO BID [facility] Last Admin: 02/13/23 08:05 Dose: 500 mg Finasteride (Finasteride 5 Mg Tablet) 5 mg PO DAILY [facility] Last Admin: 02/13/23 08:04 Dose: 5 mg Furosemide (Furosemide 20 Mg Tablet) 20 mg PO DAILY [facility]; Protocol Last Admin: 02/13/23 08:04 Dose: 20 mg Haloperidol (Haloperidol 5 Mg Tablet) 5 mg PO Q6H PRN PRN Reason: agitation Last Admin: 02/09/23 03:38 Dose: 5 mg Hydroxyzine HCl (Hydroxyzine Hcl 25 Mg Tablet) 25 mg PO Q6H PRN PRN Reason: Anxiety Last Admin: 02/10/23 00:20 Dose: 25 mg Levothyroxine Sodium (Levothyroxine Sodium 100 Mcg Tablet) 100 mcg PO DAILY@0700 [facility] Last Admin: 02/13/23 06:14 Dose: 100 mcg Magnesium Hydroxide (Milk Of Magnesia 30 Ml Oral.Susp) 30 ml PO DAILY PRN PRN Reason: Constipation Last Admin: 02/11/23 22:53 Dose: 30 ml Metformin HCl (Metformin Hcl Er 500 Mg Tab.Er.24h) 500 mg PO BEDTIME [facility] Last Admin: 02/12/23 20:07 Dose: 500 mg Metoprolol Succinate (Metoprolol Succinate Er 25 Mg Tab.Er.24h) 25 mg PO DAILY [facility]; Protocol Last Admin: 02/13/23 08:05 Dose: 25 mg Senna/Docusate Sodium (Sennosides/Docusate Sodium Tablet) 2 tab PO BID [facility] Last Admin: 02/13/23 08:04 Dose: 2 tab Tamsulosin HCl (Tamsulosin Hcl 0.4 Mg Capsule) 0.4 mg PO DAILY [facility] Last Admin: 02/13/23 08:04 Dose: 0.4 mg Trazodone HCl (Trazodone Hcl 100 Mg Tablet) 100 mg PO BEDTIME PRN PRN Reason: Insomnia Last Admin: 02/10/23 21:31 Dose: 100 mg Allergies Allergies Allergy/AdvReac Type Severity Reaction Status Date / Time No Known Allergies Allergy Verified 02/05/23 14:10 Assessment & Plan Assessment & Plan (1) Schizoaffective disorder, bipolar type: Status: Acute Code(s): F25.0 - Schizoaffective disorder, bipolar type Plan Mr. Bassett is a 67 year-old male with hx of Schizoaffective disorder who self presented to [facility] ED reporting spirits were out to get me. He denied SI. No plan or intent to harm any person but mentally fighting Satan. Pt is on clozaril. He reports taking medication as prescribed but unclear if this is the case. He did receive clozaril 150mg po qhs while in the ED ubt his pharmacy reports he should be on 250mg po qhs. Pt agrees to split the dose. Per nursing, pt was yelling at night and during the day sex, sex, sex. We discussed risks, benefits and alternative treatment options. PLAN 1. Admit to S1. CV, 15 minutes checks for safety 2. Restart clozaril 50mg po daily and 200mg po qhs. continue depakote, but note elevation in LFTs. Monitor ammonia levels. 3. Obtain collateral information 4. Aftercare planning. 02/03 add depakote 500mg po BID (monitor LFT's, ammonia). continue clozaril, continue to titrate. haldol and ativan prn for agitation. it appears he has been on haldol and recently switched to clozaril due to dyskinesia. 02/04 increase clozaril to 100mg po daily and 200mg po qhs. continue depakote. 02/05 increase Clozaril up to 100 mg p.o. q.a.m. and 100 mg p.o. q.p.m. and keep 200 p.o. q.h.s.. 02/06 keep same treatment 02/08 continue current medications. clozaril level at admission was almost zero, which means he was not taking clozaril. will recheck levels in several days 02/09 continue tx. will check to 15 minutes checks for safety. 02/10 continue tx. 02/11 continue tx. pt much less paranoid, less AH/VH. Taking meds as prescribed no side effects noted or reported. plan for dc next Wednesday. 02/12 continue tx.may increase depakote dose to 500mg po daily and 750mg po qhs. 02/13 coninue with current treatment plan, add simthecone for heartburn Patient educated on: diagnosis, medication risk/benefits and therapeutic strategies Informed Consent: further education needed Reason for continued inpatient stay Substantial Risk for: harm to self, inability to function, rapid decompensation and med/psych decompensation Time Spent With Patient Time: Total time managing care of this patient today __30__ minutes.
[2023-02-13] MEDS: metFORMIN HCl ER 500 MG TAB.ER.24H PO (20:28)
[2023-02-13] MEDS: hydrOXYzine HCL 25 MG TABLET PO (23:39)
[2023-02-13] MEDS: traZODone HCL 100 MG TABLET PO (23:39)
[2023-02-14] MEDS: Levothyroxine Sodium 100 MCG TABLET PO (06:04)
[2023-02-14 07:04] LABS: Glucose, Whole Blood 130 mg/dL (60-115)
[2023-02-14 08:00] VITALS: BP 118/70; PULSE 74; RESP 18; TEMP 36.9; O2SAT 99
[2023-02-14] MEDS: Cyanocobalamin (Vitamin B-12) 500 MCG TABLET PO (08:03)
[2023-02-14] MEDS: Sennosides/Docusate Sodium TABLET 2 TAB PO ×2 (08:03→20:04)
[2023-02-14] MEDS: Divalproex Sodium 500 MG TABLET.DR PO ×2 (08:03→20:04)
[2023-02-14] MEDS: Tamsulosin HCL 0.4 MG CAPSULE PO (08:03)
[2023-02-14] MEDS: Metoprolol Succinate ER 25 MG TAB.ER.24H PO (08:03)
[2023-02-14] MEDS: Furosemide 20 MG TABLET PO (08:03)
[2023-02-14] MEDS: cloZAPine 100 MG TABLET 200 MG PO ×2 (08:03→20:04)
[2023-02-14] MEDS: Finasteride 5 MG TABLET PO (08:03)
--- NOTE | 2023-02-14 12:40 | P.PNPSI_ITS ---
Subjective Subjective Date of Service: 02/14/23 Reason For Visit: F20.9 Interim History: pt mood variable today; having outbursts with screaming at times; alternates with presenting calm and content. slept through the night. Pt reports less worried about evil. No aggression towards self or others. He is taking medications as prescribed. VS stable. Medication Compliance: Yes Side effects from medications: No Attending Groups: Yes Review of Systems Acute medical concerns: No Medical Review of Systems: unchanged Review of Systems Review of Systems Pt denies pain, including chest pain. No changes in vision. Noted resting bilat tremor He denies constipation, reports last BM yesterday. He denies abdominal pain. He denies headaches. Mental Status Exam Mental Status Exam Narrative: Appearance: wearing casual clothing, slightly disheveled, in NAD Behavior: cooperative Psychomotor: resting bilat tremors Speech: mostly clear, regular rate/rhythm, spontaneous TP: mostly linear, no overt derailment TC: dealing with Satan's children not feeling afraid Mood: good Affect: constricted, but does brighten up at times. SI: denies HI: denies VH/AH: less AH/VH of Satan Delusions: less persecutory delusions of satans children trying to kill him Insight/judgment: fair x 2 Memory/cog: alert, oriented x 3 Patient Appearance: Appropriate Patient Orientation: Person Level of Consciousness: Awake Patient Behavior: Guarded and Passive Mood Description: Withdrawn Affect Description: Constricted Patient Cognition Impaired: Yes Ability to Follow Directions: Good Speech Pattern: Clear Diagnostics Vital Signs (24Hr): Vital Signs - 24 hr 02/13/23 18:00 02/14/23 08:00 Temperature 97.2 F 98.4 F Pulse Rate 92 74 Respiratory Rate 18 18 Blood Pressure 123/71 118/70 Pulse Oximetry 96 99 Oxygen Delivery Method Room Air Room Air BMI result Body Mass Index 27.5 Labs 02/09/23 07:53 Labs: Laboratory Results - last 48 hr 02/13/23 02/14/23 07:15 06:18 POC Glucose 94 130 H Imaging Radiology Impressions: ITS Impressions KUB X-Ray 02/05/23 10:17 IMPRESSION: Constipation Medications Medications Current Medications Acetaminophen (Acetaminophen 325 Mg Tablet) 650 mg PO Q6H PRN PRN Reason: Headache/Pain Mild Scale (1-3) Last Admin: 02/09/23 20:13 Dose: 650 mg Al Hydroxide/Mg Hydroxide (Magnesium Hydrox/Alum Hydrox 30 Ml Oral.Susp) 30 ml PO Q6H PRN PRN Reason: Heartburn/Nausea Last Admin: 02/11/23 17:26 Dose: 30 ml Clozapine (Clozapine 100 Mg Tablet) 200 mg PO BEDTIME [facility]OPE[facility] Last Admin: 02/13/23 20:27 Dose: 200 mg Clozapine (Clozapine 100 Mg Tablet) 200 mg PO DAILY [facility] Last Admin: 02/14/23 08:03 Dose: 200 mg Cyanocobalamin (Cyanocobalamin (Vitamin B-12) 500 Mcg Tablet) 500 mcg PO DAILY [facility]OPE[facility] Last Admin: 02/14/23 08:03 Dose: 500 mcg Divalproex Sodium (Divalproex Sodium 500 Mg Tablet.Dr) 500 mg PO BID LOPE[facility] Last Admin: 02/14/23 08:03 Dose: 500 mg Finasteride (Finasteride 5 Mg Tablet) 5 mg PO DAILY [facility] Last Admin: 02/14/23 08:03 Dose: 5 mg Furosemide (Furosemide 20 Mg Tablet) 20 mg PO DAILY [facility]; Protocol Last Admin: 02/14/23 08:03 Dose: 20 mg Haloperidol (Haloperidol 5 Mg Tablet) 5 mg PO Q6H PRN PRN Reason: agitation Last Admin: 02/09/23 03:38 Dose: 5 mg Hydroxyzine HCl (Hydroxyzine Hcl 25 Mg Tablet) 25 mg PO Q6H PRN PRN Reason: Anxiety Last Admin: 02/13/23 23:39 Dose: 25 mg Levothyroxine Sodium (Levothyroxine Sodium 100 Mcg Tablet) 100 mcg PO DAILY@0700 [facility] Last Admin: 02/14/23 06:04 Dose: 100 mcg Magnesium Hydroxide (Milk Of Magnesia 30 Ml Oral.Susp) 30 ml PO DAILY PRN PRN Reason: Constipation Last Admin: 02/11/23 22:53 Dose: 30 ml Metformin HCl (Metformin Hcl Er 500 Mg Tab.Er.24h) 500 mg PO BEDTIME [facility]OPE[facility] Last Admin: 02/13/23 20:28 Dose: 500 mg Metoprolol Succinate (Metoprolol Succinate Er 25 Mg Tab.Er.24h) 25 mg PO DAILY [facility]; Protocol Last Admin: 02/14/23 08:03 Dose: 25 mg Senna/Docusate Sodium (Sennosides/Docusate Sodium Tablet) 2 tab PO BID [facility] Last Admin: 02/14/23 08:03 Dose: 2 tab Simethicone (Simethicone 80 Mg Tab.Chew) 80 mg PO QIDWMHS PRN PRN Reason: GI Upset Tamsulosin HCl (Tamsulosin Hcl 0.4 Mg Capsule) 0.4 mg PO DAILY [facility] Last Admin: 02/14/23 08:03 Dose: 0.4 mg Trazodone HCl (Trazodone Hcl 100 Mg Tablet) 100 mg PO BEDTIME PRN PRN Reason: Insomnia Last Admin: 02/13/23 23:39 Dose: 100 mg Allergies Allergies Allergy/AdvReac Type Severity Reaction Status Date / Time No Known Allergies Allergy Verified 02/05/23 14:10 Assessment & Plan Assessment & Plan (1) Schizoaffective disorder, bipolar type: Status: Acute Code(s): F25.0 - Schizoaffective disorder, bipolar type Plan Mr. Bassett is a 67 year-old male with hx of Schizoaffective disorder who self presented to [facility] ED reporting spirits were out to get me. He denied SI. No plan or intent to harm any person but mentally fighting Satan. Pt is on clozaril. He reports taking medication as prescribed but unclear if this is the case. He did receive clozaril 150mg po qhs while in the ED ubt his pharmacy reports he should be on 250mg po qhs. Pt agrees to split the dose. Per nursing, pt was yelling at night and during the day sex, sex, sex. We discussed risks, benefits and alternative treatment options. PLAN 1. Admit to S1. CV, 15 minutes checks for safety 2. Restart clozaril 50mg po daily and 200mg po qhs. continue depakote, but note elevation in LFTs. Monitor ammonia levels. 3. Obtain collateral information 4. Aftercare planning. 02/03 add depakote 500mg po BID (monitor LFT's, ammonia). continue clozaril, continue to titrate. haldol and ativan prn for agitation. it appears he has been on haldol and recently switched to clozaril due to dyskinesia. 02/04 increase clozaril to 100mg po daily and 200mg po qhs. continue depakote. 02/05 increase Clozaril up to 100 mg p.o. q.a.m. and 100 mg p.o. q.p.m. and keep 200 p.o. q.h.s.. 02/06 keep same treatment 02/08 continue current medications. clozaril level at admission was almost zero, which means he was not taking clozaril. will recheck levels in several days 02/09 continue tx. will check to 15 minutes checks for safety. 02/10 continue tx. 02/11 continue tx. pt much less paranoid, less AH/VH. Taking meds as prescribed no side effects noted or reported. plan for dc next Wednesday. 02/12 continue tx.may increase depakote dose to 500mg po daily and 750mg po qhs. 02/13 coninue with current treatment plan, add simthecone for heartburn 02/14 continue treatment plan; encourage PRN meds if needed Patient educated on: diagnosis, medication risk/benefits and therapeutic strategies Informed Consent: further education needed Reason for continued inpatient stay Substantial Risk for: inability to function and rapid decompensation Time Spent With Patient Time: Total time managing care of this patient today __30__ minutes.
[2023-02-14] MEDS: HaloperidoL 5 MG TABLET PO (13:16)
[2023-02-14 19:30] VITALS: BP 151/83; PULSE 92; RESP 18; TEMP 36.2; O2SAT 96
[2023-02-14] MEDS: metFORMIN HCl ER 500 MG TAB.ER.24H PO (20:04)
[2023-02-15] MEDS: Levothyroxine Sodium 100 MCG TABLET PO (06:28)
[2023-02-15 06:41] LABS: Glucose, Whole Blood 130 mg/dL (60-115)
[2023-02-15 07:59] LABS: Neut%MD 60.2 %; Neutrophils Absolute Auto 2.9 x10*3/uL (2.0-8.3); WBCANC 4.9 X10*3/uL
[2023-02-15 08:00] VITALS: BP 120/83; PULSE 54; RESP 18; TEMP 36.3; O2SAT 98
[2023-02-15] MEDS: Cyanocobalamin (Vitamin B-12) 500 MCG TABLET PO (09:03)
[2023-02-15] MEDS: Divalproex Sodium 500 MG TABLET.DR PO ×2 (09:03→20:36)
[2023-02-15] MEDS: Sennosides/Docusate Sodium TABLET 2 TAB PO ×2 (09:03→20:37)
[2023-02-15] MEDS: Furosemide 20 MG TABLET PO (09:03)
[2023-02-15] MEDS: Tamsulosin HCL 0.4 MG CAPSULE PO (09:03)
[2023-02-15] MEDS: Metoprolol Succinate ER 25 MG TAB.ER.24H PO (09:05)
[2023-02-15] MEDS: cloZAPine 100 MG TABLET 200 MG PO ×2 (09:06→20:37)
[2023-02-15] MEDS: Finasteride 5 MG TABLET PO (09:06)
--- NOTE | 2023-02-15 12:05 | P.PNPSI_ITS ---
Subjective Subjective Date of Service: 02/15/23 Reason For Visit: F20.9 Subjective Notes: Conditional Voluntary Interim History: Pt slept about 5 hrs, per nursing. Pt reports he is doing fine. He reports less delusions about Satan. However, yesterday he did have some episodes of screaming, which is when he has AH of satan. He denies SI/HI. Not intrusive to peers or staff. He is taking medications as prescribed. No side effects noted or reported. VS stable. Review of Systems Review of Systems Pt denies pain, including chest pain. No changes in vision. Noted resting bilat tremor He denies constipation, reports last BM yesterday. He denies abdominal pain. He denies headaches. Mental Status Exam Mental Status Exam Narrative: Appearance: wearing casual clothing, slightly disheveled, in NAD Behavior: cooperative Psychomotor: resting bilat tremors Speech: mostly clear, regular rate/rhythm, spontaneous TP: mostly linear, no overt derailment TC: dealing with Satan's children not feeling afraid Mood: good Affect: constricted, but does brighten up at times. SI: denies HI: denies VH/AH: less AH/VH of Satan Delusions: less persecutory delusions of satans children trying to kill him Insight/judgment: fair x 2 Memory/cog: alert, oriented x 3 Diagnostics Vital Signs (24Hr): Vital Signs - 24 hr 02/14/23 19:30 02/15/23 08:00 Temperature 97.2 F 97.3 F Pulse Rate 92 54 Respiratory Rate 18 18 Blood Pressure 151/83 H 120/83 Pulse Oximetry 96 98 Oxygen Delivery Method Room Air Room Air BMI result Body Mass Index 27.5 Labs 02/09/23 07:53 Labs: Laboratory Results - last 48 hr 02/14/23 02/15/23 02/15/23 06:18 06:31 07:54 Absolute Neuts (auto) 2.9 POC Glucose 130 H 130 H Imaging Radiology Impressions: ITS Impressions KUB X-Ray 02/05/23 10:17 IMPRESSION: Constipation Medications Medications Current Medications Acetaminophen (Acetaminophen 325 Mg Tablet) 650 mg PO Q6H PRN PRN Reason: Headache/Pain Mild Scale (1-3) Last Admin: 02/09/23 20:13 Dose: 650 mg Al Hydroxide/Mg Hydroxide (Magnesium Hydrox/Alum Hydrox 30 Ml Oral.Susp) 30 ml PO Q6H PRN PRN Reason: Heartburn/Nausea Last Admin: 02/11/23 17:26 Dose: 30 ml Clozapine (Clozapine 100 Mg Tablet) 200 mg PO BEDTIME LOPEZ Last Admin: 02/14/23 20:04 Dose: 200 mg Clozapine (Clozapine 100 Mg Tablet) 200 mg PO DAILY [facility] Last Admin: 02/15/23 09:06 Dose: 200 mg Cyanocobalamin (Cyanocobalamin (Vitamin B-12) 500 Mcg Tablet) 500 mcg PO DAILY [facility] Last Admin: 02/15/23 09:03 Dose: 500 mcg Divalproex Sodium (Divalproex Sodium 500 Mg Tablet.Dr) 500 mg PO BID [facility]OPE[facility] Last Admin: 02/15/23 09:03 Dose: 500 mg Finasteride (Finasteride 5 Mg Tablet) 5 mg PO DAILY [facility] Last Admin: 02/15/23 09:06 Dose: 5 mg Furosemide (Furosemide 20 Mg Tablet) 20 mg PO DAILY [facility]; Protocol Last Admin: 02/15/23 09:03 Dose: 20 mg Haloperidol (Haloperidol 5 Mg Tablet) 5 mg PO Q6H PRN PRN Reason: agitation Last Admin: 02/14/23 13:16 Dose: 5 mg Hydroxyzine HCl (Hydroxyzine Hcl 25 Mg Tablet) 25 mg PO Q6H PRN PRN Reason: Anxiety Last Admin: 02/13/23 23:39 Dose: 25 mg Levothyroxine Sodium (Levothyroxine Sodium 100 Mcg Tablet) 100 mcg PO DAILY@0700 [facility] Last Admin: 02/15/23 06:28 Dose: 100 mcg Magnesium Hydroxide (Milk Of Magnesia 30 Ml Oral.Susp) 30 ml PO DAILY PRN PRN Reason: Constipation Last Admin: 02/11/23 22:53 Dose: 30 ml Metformin HCl (Metformin Hcl Er 500 Mg Tab.Er.24h) 500 mg PO BEDTIME [facility]OPEZ Last Admin: 02/14/23 20:04 Dose: 500 mg Metoprolol Succinate (Metoprolol Succinate Er 25 Mg Tab.Er.24h) 25 mg PO DAILY [facility]; Protocol Last Admin: 02/15/23 09:05 Dose: 25 mg Senna/Docusate Sodium (Sennosides/Docusate Sodium Tablet) 2 tab PO BID LOPEZ Last Admin: 02/15/23 09:03 Dose: 2 tab Simethicone (Simethicone 80 Mg Tab.Chew) 80 mg PO QIDWMHS PRN PRN Reason: GI Upset Tamsulosin HCl (Tamsulosin Hcl 0.4 Mg Capsule) 0.4 mg PO DAILY [facility] Last Admin: 02/15/23 09:03 Dose: 0.4 mg Trazodone HCl (Trazodone Hcl 100 Mg Tablet) 100 mg PO BEDTIME PRN PRN Reason: Insomnia Last Admin: 02/13/23 23:39 Dose: 100 mg Allergies Allergies Allergy/AdvReac Type Severity Reaction Status Date / Time No Known Allergies Allergy Verified 02/05/23 14:10 Assessment & Plan Assessment & Plan (1) Schizoaffective disorder, bipolar type: Status: Acute Code(s): F25.0 - Schizoaffective disorder, bipolar type Plan Mr. Bassett is a 67 year-old male with hx of Schizoaffective disorder who self presented to [facility] ED reporting spirits were out to get me. He denied SI. No plan or intent to harm any person but mentally fighting Satan. Pt is on clozaril. He reports taking medication as prescribed but unclear if this is the case. He did receive clozaril 150mg po qhs while in the ED ubt his pharmacy reports he should be on 250mg po qhs. Pt agrees to split the dose. Per nursing, pt was yelling at night and during the day sex, sex, sex. We discussed risks, benefits and alternative treatment options. PLAN 1. Admit to S1. CV, 15 minutes checks for safety 2. Restart clozaril 50mg po daily and 200mg po qhs. continue depakote, but note elevation in LFTs. Monitor ammonia levels. 3. Obtain collateral information 4. Aftercare planning. 02/03 add depakote 500mg po BID (monitor LFT's, ammonia). continue clozaril, continue to titrate. haldol and ativan prn for agitation. it appears he has been on haldol and recently switched to clozaril due to dyskinesia. 02/04 increase clozaril to 100mg po daily and 200mg po qhs. continue depakote. 02/05 increase Clozaril up to 100 mg p.o. q.a.m. and 100 mg p.o. q.p.m. and keep 200 p.o. q.h.s.. 02/06 keep same treatment 02/08 continue current medications. clozaril level at admission was almost zero, which means he was not taking clozaril. will recheck levels in several days 02/09 continue tx. will check to 15 minutes checks for safety. 02/10 continue tx. 02/11 continue tx. pt much less paranoid, less AH/VH. Taking meds as prescribed no side effects noted or reported. plan for dc next Wednesday. 02/12 continue tx.may increase depakote dose to 500mg po daily and 750mg po qhs. 02/13 coninue with current treatment plan, add simthecone for bloating 02/14 continue treatment plan; encourage PRN meds if needed 02/15 continue tx. plan for d/c Wednesday. Reason for continued inpatient stay Substantial Risk for: inability to function Time Spent With Patient Time: Total time managing care of this patient today ____ minutes.
[2023-02-15 18:00] VITALS: BP 133/76; PULSE 95; RESP 18; TEMP 36.1; O2SAT 95
[2023-02-15] MEDS: metFORMIN HCl ER 500 MG TAB.ER.24H PO (20:37)
[2023-02-15] MEDS: traZODone HCL 100 MG TABLET PO (20:37)
[2023-02-16 06:10] LABS: Glucose, Whole Blood 88 mg/dL (60-115)
[2023-02-16] MEDS: Levothyroxine Sodium 100 MCG TABLET PO (06:15)
[2023-02-16 08:00] VITALS: BP 152/70; PULSE 89; RESP 18; TEMP 36; O2SAT 98
[2023-02-16] MEDS: Finasteride 5 MG TABLET PO (08:06)
[2023-02-16] MEDS: Tamsulosin HCL 0.4 MG CAPSULE PO (08:07)
[2023-02-16] MEDS: Divalproex Sodium 500 MG TABLET.DR PO (08:07)
[2023-02-16] MEDS: Furosemide 20 MG TABLET PO (08:07)
[2023-02-16] MEDS: Sennosides/Docusate Sodium TABLET 2 TAB PO (08:07)
[2023-02-16] MEDS: cloZAPine 100 MG TABLET 200 MG PO ×2 (08:07→19:46)
[2023-02-16] MEDS: Cyanocobalamin (Vitamin B-12) 500 MCG TABLET PO (08:07)
[2023-02-16 08:14] LABS: Creatinine Clr Calc Pharmacy 91.1; Estimated Glomerular Filt Rate > 60
[2023-02-16] MEDS: Metoprolol Succinate ER 25 MG TAB.ER.24H PO (08:48)
--- NOTE | 2023-02-16 12:40 | P.PNPSI_ITS ---
Subjective Subjective Date of Service: 02/16/23 Reason For Visit: F20.9 Subjective Notes: Conditional Voluntary Interim History: Pt has had few isolated episodes of screaming- which is related to AH of satan. He is easily redirectable. he slept through the night. He is taking medications as prescribed. Some insight that voices may be sign of his own mental illness. No side effects with meds. Medication Compliance: Yes Review of Systems Review of Systems Pt denies pain, including chest pain. No changes in vision. Noted resting bilat tremor He denies constipation, reports last BM yesterday. He denies abdominal pain. He denies headaches. Mental Status Exam Mental Status Exam Narrative: Appearance: wearing casual clothing, slightly disheveled, in NAD Behavior: cooperative Psychomotor: resting bilat tremors Speech: mostly clear, regular rate/rhythm, spontaneous TP: mostly linear, no overt derailment TC: dealing with Satan's children not feeling afraid Mood: good Affect: constricted, but does brighten up at times. SI: denies HI: denies VH/AH: less AH/VH of Satan Delusions: less persecutory delusions of satans children trying to kill him Insight/judgment: fair x 2 Memory/cog: alert, oriented x 3 Diagnostics Vital Signs (24Hr): Vital Signs - 24 hr 02/15/23 18:00 02/16/23 08:00 Temperature 97.0 F 96.8 F Pulse Rate 95 89 Respiratory Rate 18 18 Blood Pressure 133/76 152/70 H Pulse Oximetry 95 98 Oxygen Delivery Method Room Air Room Air BMI result Body Mass Index 27.5 Labs 02/16/23 07:53 Labs: Laboratory Results - last 48 hr 02/15/23 02/15/23 02/16/23 06:31 07:54 04:21 Absolute Neuts (auto) 2.9 Creatinine Estim Creat Clear Calc Estimated GFR POC Glucose 130 H 88 02/16/23 07:53 Absolute Neuts (auto) Creatinine 0.79 Estim Creat Clear Calc 91.1 Estimated GFR > 60 POC Glucose Imaging Radiology Impressions: ITS Impressions KUB X-Ray 02/05/23 10:17 IMPRESSION: Constipation Medications Medications Current Medications Acetaminophen (Acetaminophen 325 Mg Tablet) 650 mg PO Q6H PRN PRN Reason: Headache/Pain Mild Scale (1-3) Last Admin: 02/09/23 20:13 Dose: 650 mg Al Hydroxide/Mg Hydroxide (Magnesium Hydrox/Alum Hydrox 30 Ml Oral.Susp) 30 ml PO Q6H PRN PRN Reason: Heartburn/Nausea Last Admin: 02/11/23 17:26 Dose: 30 ml Clozapine (Clozapine 100 Mg Tablet) 200 mg PO BEDTIME LOPEZ Last Admin: 02/15/23 20:37 Dose: 200 mg Clozapine (Clozapine 100 Mg Tablet) 200 mg PO DAILY [facility] Last Admin: 02/16/23 08:07 Dose: 200 mg Cyanocobalamin (Cyanocobalamin (Vitamin B-12) 500 Mcg Tablet) 500 mcg PO DAILY [facility] Last Admin: 02/16/23 08:07 Dose: 500 mcg Divalproex Sodium (Divalproex Sodium 250 Mg Tablet.Dr) 750 mg PO BEDTIME LPOEZ Divalproex Sodium (Divalproex Sodium 500 Mg Tablet.Dr) 500 mg PO DAILY [facility] Finasteride (Finasteride 5 Mg Tablet) 5 mg PO DAILY [facility] Last Admin: 02/16/23 08:06 Dose: 5 mg Furosemide (Furosemide 20 Mg Tablet) 20 mg PO DAILY [facility]; Protocol Last Admin: 02/16/23 08:07 Dose: 20 mg Haloperidol (Haloperidol 5 Mg Tablet) 5 mg PO Q6H PRN PRN Reason: agitation Last Admin: 02/14/23 13:16 Dose: 5 mg Hydroxyzine HCl (Hydroxyzine Hcl 25 Mg Tablet) 25 mg PO Q6H PRN PRN Reason: Anxiety Last Admin: 02/13/23 23:39 Dose: 25 mg Levothyroxine Sodium (Levothyroxine Sodium 100 Mcg Tablet) 100 mcg PO DAILY@0700 [facility] Last Admin: 02/16/23 06:15 Dose: 100 mcg Magnesium Hydroxide (Milk Of Magnesia 30 Ml Oral.Susp) 30 ml PO DAILY PRN PRN Reason: Constipation Last Admin: 02/11/23 22:53 Dose: 30 ml Metformin HCl (Metformin Hcl Er 500 Mg Tab.Er.24h) 500 mg PO BEDTIME LOPEZ Last Admin: 02/15/23 20:37 Dose: 500 mg Metoprolol Succinate (Metoprolol Succinate Er 25 Mg Tab.Er.24h) 25 mg PO DAILY [facility]; Protocol Senna/Docusate Sodium (Sennosides/Docusate Sodium Tablet) 2 tab PO BID [facility]OPE[facility] Last Admin: 02/16/23 08:07 Dose: 2 tab Simethicone (Simethicone 80 Mg Tab.Chew) 80 mg PO QIDWMHS PRN PRN Reason: GI Upset Tamsulosin HCl (Tamsulosin Hcl 0.4 Mg Capsule) 0.4 mg PO DAILY [facility] Last Admin: 02/16/23 08:07 Dose: 0.4 mg Trazodone HCl (Trazodone Hcl 100 Mg Tablet) 100 mg PO BEDTIME PRN PRN Reason: Insomnia Last Admin: 02/15/23 20:37 Dose: 100 mg Allergies Allergies Allergy/AdvReac Type Severity Reaction Status Date / Time No Known Allergies Allergy Verified 02/05/23 14:10 Assessment & Plan Assessment & Plan (1) Schizoaffective disorder, bipolar type: Status: Acute Code(s): F25.0 - Schizoaffective disorder, bipolar type Plan Mr. Bassett is a 67 year-old male with hx of Schizoaffective disorder who self presented to [facility] ED reporting spirits were out to get me. He denied SI. No plan or intent to harm any person but mentally fighting Satan. Pt is on clozaril. He reports taking medication as prescribed but unclear if this is the case. He did receive clozaril 150mg po qhs while in the ED ubt his pharmacy reports he should be on 250mg po qhs. Pt agrees to split the dose. Per nursing, pt was yelling at night and during the day sex, sex, sex. We discussed risks, benefits and alternative treatment options. PLAN 1. Admit to S1. CV, 15 minutes checks for safety 2. Restart clozaril 50mg po daily and 200mg po qhs. continue depakote, but note elevation in LFTs. Monitor ammonia levels. 3. Obtain collateral information 4. Aftercare planning. 02/03 add depakote 500mg po BID (monitor LFT's, ammonia). continue clozaril, continue to titrate. haldol and ativan prn for agitation. it appears he has been on haldol and recently switched to clozaril due to dyskinesia. 02/04 increase clozaril to 100mg po daily and 200mg po qhs. continue depakote. 02/05 increase Clozaril up to 100 mg p.o. q.a.m. and 100 mg p.o. q.p.m. and keep 200 p.o. q.h.s.. 02/06 keep same treatment 02/08 continue current medications. clozaril level at admission was almost zero, which means he was not taking clozaril. will recheck levels in several days 02/09 continue tx. will check to 15 minutes checks for safety. 02/10 continue tx. 02/11 continue tx. pt much less paranoid, less AH/VH. Taking meds as prescribed no side effects noted or reported. plan for dc next Wednesday. 02/12 continue tx.may increase depakote dose to 500mg po daily and 750mg po qhs. 02/13 coninue with current treatment plan, add simthecone for bloating 02/14 continue treatment plan; encourage PRN meds if needed 02/15 continue tx. plan for d/c Wednesday. 02/16- plan for d/c tomorrow. some isolated episodes of screaming but pt overall with less delusions and less AH/VH. no aggression, easily redirectable. taking meds. Reason for continued inpatient stay Substantial Risk for: inability to function Time Spent With Patient Time: Total time managing care of this patient today ____ minutes.
[2023-02-16] MEDS: Divalproex Sodium 250 MG TABLET.DR 750 MG PO (19:47)
[2023-02-16] MEDS: traZODone HCL 100 MG TABLET PO (19:48)
[2023-02-16] MEDS: metFORMIN HCl ER 500 MG TAB.ER.24H PO (19:48)
[2023-02-17] MEDS: Levothyroxine Sodium 100 MCG TABLET PO (06:19)
[2023-02-17 07:39] LABS: Glucose, Whole Blood 103 mg/dL (60-115)
[2023-02-17 08:00] VITALS: BP 157/91; PULSE 84; RESP 18; TEMP 36.6; O2SAT 98
--- NOTE | 2023-02-17 08:18 | P.DS_ITS ---
DS: Providers Provider Date of Service: 02/17/23 Date of admission: 02/01/23 17:37 Date of discharge: 02/17/23 Primary care physician: Flaca Felton MD Consults: 02/01/23 17:52 Consult to Hospitalist Routine Comment: Consulting Provider: Hospitalist Reason For Exam: OSH admission DS: Diagnosis Discharge Diagnosis (1) Schizoaffective disorder, bipolar type: Status: Acute DS: Medications Discharge Medications Home Medications: Home Medications Medication Instructions Recorded Confirmed anastrozole 1 mg tablet 1 mg PO 02/02/23 Previous Rx's Medication Instructions Recorded alfuzosin 10 mg tablet,extended 10 mg PO DAILY #30 tabs 02/17/23 release 24 hr atorvastatin 80 mg tablet 80 mg PO DAILY #30 tabs 02/17/23 clozapine 100 mg tablet 200 mg PO BEDTIME #60 tabs 02/17/23 clozapine 100 mg tablet 200 mg PO DAILY #60 tabs 02/17/23 cyanocobalamin (vitamin B-12) 500 500 mcg PO DAILY #30 tabs 02/17/23 mcg tablet divalproex 250 mg tablet,delayed 250 mg PO BEDTIME #30 tabs 02/17/23 release divalproex 500 mg tablet,delayed 500 mg PO BID #60 tabs 02/17/23 release famotidine 20 mg tablet 20 mg PO DAILY #30 tabs 02/17/23 finasteride 5 mg tablet 5 mg PO DAILY #30 tabs 02/17/23 furosemide 20 mg tablet 20 mg PO DAILY #30 tabs 02/17/23 levothyroxine 100 mcg tablet 100 mcg PO DAILY@0700 #30 tabs 02/17/23 (Synthroid) metformin 500 mg tablet,extended 500 mg PO BEDTIME #30 tabs 02/17/23 release 24 hr metoprolol succinate 25 mg 25 mg PO DAILY blood pressure #30 02/17/23 tablet,extended release 24 hr tabs sennosides 8.6 mg-docusate sodium 2 tab PO BID #180 tabs 02/17/23 50 mg tablet (Senna Plus) trazodone 100 mg tablet 100 mg PO BEDTIME PRN Insomnia #30 02/17/23 tabs Mental Status Exam Mental Status Exam Narrative: Appearance: wearing casual clothing, slightly disheveled, in NAD Behavior: cooperative Psychomotor: resting bilat tremors Speech: mostly clear, regular rate/rhythm, spontaneous TP: mostly linear, no overt derailment TC: looking forward to return home, feeling less anxious Mood: good Affect: congruent SI: denies HI: denies VH/AH: less AH/VH of Satan Delusions: less persecutory delusions of Satan. Insight/judgment: fair x 2 Memory/cog: alert, oriented x 3 Data Data Completed and Pending Completed studies during hospitalization [Text1]: 02/11/23 02/12/23 02/12/23 07:25 06:41 08:00 Absolute Neuts (auto) Creatinine Estim Creat Clear Calc Estimated GFR POC Glucose 107 100 Valproic Acid Clozapine Pending Norclozapine Pending 02/12/23 02/13/23 02/14/23 08:00 07:15 06:18 Absolute Neuts (auto) Creatinine Estim Creat Clear Calc Estimated GFR POC Glucose 94 130 H Valproic Acid 40.9 L Clozapine Norclozapine 02/15/23 02/15/23 02/16/23 06:31 07:54 04:21 Absolute Neuts (auto) 2.9 Creatinine Estim Creat Clear Calc Estimated GFR POC Glucose 130 H 88 Valproic Acid Clozapine Norclozapine 02/16/23 02/17/23 07:53 07:35 Absolute Neuts (auto) Creatinine 0.79 Estim Creat Clear Calc 91.1 Estimated GFR > 60 POC Glucose 103 Valproic Acid Clozapine Norclozapine Imaging Diagnostic Imaging Impressions KUB X-Ray 02/05/23 10:17 IMPRESSION: Constipation DS: Summary Hospital Course Hospital Course: Mr. Sales is a 67 year-old male with hx of schizoaffective disorder who self presented to [facility] ED in [place] after being discharged from [facility] reporting that spirits were out to get him. In the ED, pt described as yelling at times sex, sex, sex. He denied SI but reported HI towards evil forces. Utox is negative. Pt has had multiple inpatient admission throughout his life and has halfway psychiatrist Dr. Rahel Mejia On the unit, pt presents as pleasant. He reports he came to the hospital because Felix's children are trying to kill me. Pt explains that he can see them, but not hear them. He reports he was seeing them while he was at ED. He denies suicidal ideation. He reports at times poor sleep due to nightmares. He reports homicidal ideation towards evil forces but explains this is a mental process not physically assaulting anyone. Pt reports he lives alone and reports that he takes his medications as prescribed. He reports remote suicidal attempt when he was in high school when he thought devil was trying to kill him and he didn't want to feel the pain. He denies any thoughts like this now or recently. Pt was observed praying prior to eating his food and before every bite. Past Psychiatric History: Inpatient: multiple in the past, no details provided OP: Dr. Rahel Mejia Past trials: clozaril, lithium (per pt not as effective as depakote), depakote, haldol Medical Evaluation Reviewed: Yes HOSPITAL COURSE On the unit, pt was admitted on a CV and placed on 15 minutes checks for safety. Pt presented with delusions of Satan trying to kill him, paranoid towards peers and staff and intrusive to others due to his delusions. He denied SI, vague HI towards Satan's children, but denied any plan or intent to harm anyone. We discussed risks, benefits and alternative treatment options. Pt was on clozaril but clozaril levels on admission were close to zero. Collateral information from his outpatient psychiatrist, Dr. Shaw who left message reporting pt was switched from haldol to clozaril recently due to dyskenisia. Pt was noted to have bilat resting and action tremors. Clozaril was titrated to 200mg po BID, which he tolerated well. His depakote was increased to 500mg po daily and 750mg po qhs for mood, and more sexualized behaviors. His affect gradually presented as less paranoid and suspicious. He was no longer intrusive towards peers or staff. He reported less VH/AH of Satan. H was sleeping and eating well. There were no incidences of disruptive behaviors nor need for restraints. Clozaril levels taken days before discharged but results not available at time of discharge. Collateral information was gathered from his brother, Riky who denied any safety concerns at time of discharged. Status at Discharge Cognitive/behavioral status at discharge: Pt with bright, non labile affect. Much less paranoid ideas and less AH/VH. No SI/HI. No aggression towards self or others. Pt sleeping and eating well. Pt taking medications. Future oriented. Functional status at discharge: independent ambulation Overall status at discharge: patient is progressing back to baseline Time Spent with Patient Time attestation: Total time managing care of this patient today __30__ minutes. Discharge Plan Discharge Anticipated Discharge Date/Time: 02/17/23 08:05 Patient Disposition: Home, Self-Care Discharge Diagnosis: schizophrenia Referrals: Dr. Rahel Mejia [Other] - 03/02/23 10:15 am (Appoint: 03/02/23 ) Brandon Baca - Therapist @ [facility] [Other] - 02/22/23 1:00 pm Flaca Felton MD [Primary Care Provider] - 02/22/23 10:00 am Discharge Medications: New divalproex 250 mg Tablet,Delayed Release (Dr/Ec) 250 mg PO BEDTIME Qty: 30 0RF clozapine 100 mg Tablet 200 mg PO DAILY Qty: 60 0RF clozapine 100 mg Tablet 200 mg PO BEDTIME Qty: 60 0RF sennosides-docusate sodium [Senna Plus] 8.6-50 mg Tablet 2 tab PO BID Qty: 180 0RF divalproex 500 mg Tablet,Delayed Release (Dr/Ec) 500 mg PO BID Qty: 60 0RF trazodone 100 mg Tablet 100 mg PO BEDTIME PRN (Reason: Insomnia) Qty: 30 0RF levothyroxine [Synthroid] 100 mcg Tablet 100 mcg PO DAILY@0700 Qty: 30 0RF cyanocobalamin (vitamin B-12) 500 mcg Tablet 500 mcg PO DAILY Qty: 30 0RF metformin 500 mg Tablet Extended Release 24 Hr 500 mg PO BEDTIME Qty: 30 0RF finasteride 5 mg Tablet 5 mg PO DAILY Qty: 30 0RF Continued anastrozole 1 mg tablet 1 mg PO metoprolol succinate 25 mg tablet extended release 24 hr 25 mg PO DAILY Qty: 30 0RF alfuzosin 10 mg tablet extended release 24 hr 10 mg PO DAILY Qty: 30 0RF Changed atorvastatin 80 mg tablet 80 mg PO DAILY Qty: 30 0RF famotidine 20 mg tablet 20 mg PO DAILY Qty: 30 0RF furosemide 20 mg tablet 20 mg PO DAILY Qty: 30 0RF Discontinued benztropine 0.5 mg tablet 0.5 mg PO BEDTIME levothyroxine 100 mcg tablet 100 mcg PO docusate sodium 100 mg capsule 200 mg PO BID PRN (Reason: Constipation) finasteride 5 mg tablet 5 mg PO cyanocobalamin (vitamin B-12) [Vitamin B-12] 1,000 mcg tablet extended release 1,000 mcg PO DAILY sennosides-docusate sodium [Senna Plus] 8.6-50 mg tablet 2 tab PO BID ropinirole 0.5 mg tablet 0.5 mg PO BID metformin 500 mg tablet extended release 24 hr 500 mg PO QPM Discharge Orders: Discharge Order (Routine); Ordered 02/17/23 Ordered By: Rupa Dacosta Diet: Regular diet Activity on Discharge: As tolerated Stand Alone Forms: Patient Portal Discharge page Care Plan Goals: 1. Maintain mood 2. No aggression towards self or others 3. No SI/HI 4. Less AH/VH, less delusions Health Concerns: Follow up with PCP for regular care Plan of Treatment: 1. Take medications as prescribed 2. Go to nearest ED or call 911 in event of emergency Assessment: Pt with less paranoid affect. He is less intrusive to others. No aggression towards self or others. No SI/HI. Pt sleeping through the night. Less AH/VH, less delusions. Future oriented, taking medications.
[2023-02-17] MEDS: Furosemide 20 MG TABLET PO (08:52)
[2023-02-17] MEDS: Divalproex Sodium 500 MG TABLET.DR PO (08:52)
[2023-02-17] MEDS: Sennosides/Docusate Sodium TABLET 2 TAB PO (08:52)
[2023-02-17] MEDS: Metoprolol Succinate ER 25 MG TAB.ER.24H PO (08:53)
[2023-02-17] MEDS: Cyanocobalamin (Vitamin B-12) 500 MCG TABLET PO (08:54)
[2023-02-17] MEDS: cloZAPine 100 MG TABLET 200 MG PO (08:54)
[2023-02-17] MEDS: Tamsulosin HCL 0.4 MG CAPSULE PO (08:54)
[2023-02-17] MEDS: Finasteride 5 MG TABLET PO (08:56)
[2023-02-18 04:53] LABS: Clozapine (Clozaril) 385 mcg/L; Norclozapine 136 mcg/L (25-400)
== END 2023-02-17 13:35 | disposition home or self-care (01) | DRG 885 ==
PROVIDERS: Psychiatry & Neurology Psychiatry; Social Worker; Admitting Provider Psychiatry & Neurology Psychiatry; PCP Internal Medicine; Visit Provider Psychiatry & Neurology Psychiatry
DX: F25.0 Schizoaffective disorder, bipolar type (principal); N40.0 Benign prostatic hyperplasia without lower urinary tract symptoms; I97.2 Postmastectomy lymphedema syndrome; E78.5 Hyperlipidemia, unspecified; E03.9 Hypothyroidism, unspecified; C50.922 Malignant neoplasm of unspecified site of left male breast; E11.9 Type 2 diabetes mellitus without complications; Z87.891 Personal history of nicotine dependence; Z79.811 Long term (current) use of aromatase inhibitors; Z79.84 Long term (current) use of oral hypoglycemic drugs; Z79.899 Other long term (current) drug therapy
CPT/HCPCS: 36415; 74018; 80053; 80061; 80076; 80159; 80164; 82140; 82565; 82607; 82746; 82947; 83036; 84439; 84443; 85048

== ENCOUNTER → 2023-02-01 17:37 | Outpatient (BNV) | payer MEDICARE, MEDICAID, SELFPAY | PROVIDERS: Admitting Provider Psychiatry & Neurology Psychiatry; PCP Internal Medicine; Visit Provider Social Worker | DX: F25.0 Schizoaffective disorder, bipolar type (principal) | CPT/HCPCS: 90792; 99231; 99232; 99239 ==

== ENCOUNTER → 2023-02-01 17:37 | Outpatient (BNV) | payer MEDICARE, MEDICAID, SELFPAY | PROVIDERS: Admitting Provider Psychiatry & Neurology Psychiatry; PCP Internal Medicine; Visit Provider Physician Assistant | DX: E11.9 Type 2 diabetes mellitus without complications (principal); E78.5 Hyperlipidemia, unspecified; I10 Essential (primary) hypertension; I89.0 Lymphedema, not elsewhere classified | CPT/HCPCS: 99222 ==